=== PATIENT | female | born 1960 | race Caucasian/White ===

== ENCOUNTER 2019-07-30 11:28 | Outpatient (CLI) | payer BC, SELFPAY ==
--- NOTE | 2019-07-30 11:39 | XR_ITS ---
WS: [id number] CHEST 2 VIEWS HISTORY: COUGH COMPARISON: 06/20/2016 Lungs: Slight rounded opacification in the RIGHT lower lobe has been stable over multiple years. Thin linear areas of scarring in the mid and lower LEFT lung. Benign granuloma RIGHT lung base. No pneumo ananya. No pleural effusion or pneumothorax. Cardiac size: Normal. Mediastinum/Aorta: Normal mediastinum. Bones: Thoracic spondylosis. XR/XR chest 2V* [id number] IMPRESSION: No acute cardiopulmonary disease. Similar findings as compared to the prior prudence dy.
== END 2019-07-30 11:29 | disposition home or self-care (01) ==
LOC: RADWPI 11:34
PROVIDERS: Family Provider Family Medicine; PCP Family Medicine; Visit Provider Nurse Practitioner Family
DX: R05 Cough (principal)
CPT/HCPCS: 71046

== ENCOUNTER 2020-04-16 13:06 | Outpatient (CLI) | payer BC, SELFPAY ==
--- NOTE | 2020-04-16 13:14 | CT_ITS ---
WS: [id number] LDCT LUNG CANCER SCREENING HISTORY: NICOTINE DEPENDENCE TECHNIQUE: Axial imaging performed from the apices to 1 cm below the costophrenic angles. Coronal and sagittal reformats are submitted with axial MIP series. All CT scans at [facility] use at least one of these dose optimization techniques: automated exposure control; mA and/or kV adjustment per patient size (includes targeted exams where dose is matched to clinical indication); or iterativ e reconstruction. DLP: 51.81 mGy.cm DIvol: 1.58 mGy COMPARISON: 06/26/2016 Diagnostic quality: Satisfactory Lung Nodules: Subpleural 7 mm nodule in the posterior RIGHT upper lobe measures 7 mm, image 64 of ser ies 3. Subsegmental linear areas of scar RIGHT lower lobe and LEFT upper lobes. Lungs: Long-term stability of the neck soft tissue and calcified mass in the LEFT lower lobe may be o f vascular etiology. No increase in size over multiple prior studies. Subsegmental atelectasis at the lingula. Heart: Normal size heart. Moderate calcification in the [place] coronary arteries. Other findings: Calcified subcarinal and RIGHT hilar lymph nodes. Pulmonary artery is slightly enlarg ed. Large hiatal hernia. Increase in thoracic kyphosis. CT/CT lung screening [id number] IMPRESSION: LUNG-RADS: 3-Probably Benign FOLLOW UP: 6 Month LDCT Follow up subpleural 7 mm nodule in the posterior RIGHT upper lobe. OTHER FINDINGS (S MODIFIER): None.
== END 2020-04-16 13:07 | disposition home or self-care (01) ==
LOC: RAD 13:10
PROVIDERS: PCP Family Medicine; Visit Provider Family Medicine
DX: Z12.2 Encounter for screening for malignant neoplasm of respiratory organs (principal); F17.210 Nicotine dependence, cigarettes, uncomplicated
CPT/HCPCS: G0297

== ENCOUNTER 2020-06-07 13:04 | Outpatient (CLI) | payer BC, SELFPAY ==
--- NOTE | 2020-06-07 13:11 | MM_ITS ---
WS: [id number] BILATERAL SCREENING DIGITAL MAMMOGRAM WITH CAD HISTORY: SCREENING COMPARISON: 07/19/2017 and 07/03/2016 Bilateral CC and MLO views submitted. Computer aided detection analyzed. Breast composition: There are scattered areas of fibroglandular density. No suspicious masses, microc alcifications or architectural distortion. Benign calcifications in each breast. MM/[place] [id number] IMPRESSION: BI-RADS: 2-Benign FOLLOW UP: 1 Year Follow-up
== END 2020-06-07 13:05 | disposition home or self-care (01) ==
LOC: RADSHAW 13:07
PROVIDERS: PCP Family Medicine; Visit Provider Family Medicine
DX: Z12.31 Encounter for screening mammogram for malignant neoplasm of breast (principal)
CPT/HCPCS: 77067

== ENCOUNTER 2020-09-22 13:06 | Outpatient (CLI) | payer BC, SELFPAY ==
--- NOTE | 2020-09-22 13:20 | CT_ITS ---
WS: [id number] CT CHEST WITHOUT INTRAVENOUS CONTRAST HISTORY: PULMONARY NODULE, RIGHT UPPER LOBE TECHNIQUE: Contiguous 5 mm axial imaging performed on the thorax. Coronal and sagittal reformats are submitted. All CT scans at [facility] use at least one of these dose optimization techniq ues: automated exposure control; mA and/or kV adjustment per patient size (includes targeted exams wh ere dose is matched to clinical indication); or iterative reconstruction. CONTRAST: None DLP: 837.05 mGycm COMPARISON: 07/30/2019, 06/17/2019 and 06/26/2016 Lungs and central airway: Previously described nodule in the posterior RIGHT upper lobe has resolved in the interval. No suspicious masses. Linear scar near the lingula. Numerous calcifications with bro nchial thickening in the RIGHT lower lobe along the fissure is stable. Pleura: Normal. No pleural effusion. Heart and pericardium: Normal size heart with coronary artery calcifications. Mediastinum and clinton: Numerous small mediastinal and hilar lymph nodes. Vessels: Pulmonary artery size is equal to the aorta. Chest wall and lower neck: No soft tissue masses. Upper abdomen: Moderate size hiatal hernia similar to the prior study. Splenic granulomata. No adrena l mass. Osseous structures: Moderate thoracic spondylosis. CT/CT chest wo con [id number] IMPRESSION: 1. Interval resolution of a previously described subpleural nodule in the RIGH T upper lobe. 2. No acute adenopathy or pulmonary mass. 3. Moderate size hiatal hernia.
== END 2020-09-22 13:07 | disposition home or self-care (01) ==
LOC: RADWPI 13:09
PROVIDERS: PCP Family Medicine; Visit Provider Family Medicine
DX: R91.1 Solitary pulmonary nodule (principal); K44.9 Diaphragmatic hernia without obstruction or gangrene
CPT/HCPCS: 71250

== ENCOUNTER 2020-11-11 10:37 | Outpatient (CLI) | payer BC, SELFPAY ==
--- NOTE | 2020-11-11 10:52 | XR_ITS ---
WS: [id number] Left hip, 2 views, 11/11/2020 Clinical Data: L HIP JOINT PAIN/CHRONIC RHEUMATOID ARTHRITIS Comparison: Bilateral hips, 01/31/2016. Findings: No fractures or dislocations are seen. There is an acetabular spur with minimal narrowing of the join t space unchanged. The soft tissues are not remarkable. The adjacent pelvis is normal. The left SI joint and the pubic symphysis are not remarkable. XR/XR hip LT 2-3V wo/w pel* [id number] Impression: Minimal osteoarthritis of the left hip. Tonnis classification: grade 1: sclerosis of femoral head and acetabulum or sli ght joint space narrowing or slight lipping at joint margins
== END 2020-11-11 10:38 | disposition home or self-care (01) ==
PROVIDERS: PCP Family Medicine; Visit Provider Family Medicine
DX: M25.552 Pain in left hip (principal); M06.9 Rheumatoid arthritis, unspecified
CPT/HCPCS: 73502

== ENCOUNTER 2020-11-19 13:06 | Outpatient (CLI) | payer BC, SELFPAY ==
--- NOTE | 2020-11-19 13:14 | XR_ITS ---
WS: [id number] Bone mineral density performed on a [employer] IDXA, 11/19/2020 Clinical data: ASYMPTOMATIC MENOPAUSAL STATE, OSTEOPENIA, RHEUMATOID ARTHRI Comparison study: DEXA scan, 02/10/2016. Findings: The first 4 lumbar vertebral bodies demonstrated the bone mineral density of 1.145 g/sq cm for a timbo g adult T score of -0.5. Measurement of the left radius reveals a bone mineral density of 0.906 g/sq cm with a young adult T s core of 1.3. XR/XR DEXA axial skeleton* 11376 Impression: 1. Normal bone mineral density of the lumbar spine and left radius. 2. There is improvement in the bone mineral density of the lumbar spine compare d to the previous examination.
== END 2020-11-19 13:07 | disposition home or self-care (01) ==
PROVIDERS: PCP Family Medicine; Visit Provider Family Medicine
DX: M85.80 Other specified disorders of bone density and structure, unspecified site (principal); M06.9 Rheumatoid arthritis, unspecified; Z78.0 Asymptomatic menopausal state
CPT/HCPCS: 77080

== ENCOUNTER → 2020-12-14 13:24 | Outpatient (BNVA) | payer BC, SELFPAY | PROVIDERS: PCP Family Medicine; Visit Provider Internal Medicine | DX: M06.9 Rheumatoid arthritis, unspecified (principal); Z11.59 Encounter for screening for other viral diseases; Z11.1 Encounter for screening for respiratory tuberculosis; Z79.899 Other long term (current) drug therapy; F17.210 Nicotine dependence, cigarettes, uncomplicated | CPT/HCPCS: 99203; 99204 ==

== ENCOUNTER 2020-12-15 13:39 | Outpatient (CLI) | payer BC, SELFPAY ==
--- NOTE | 2020-12-15 13:43 | XR_ITS ---
WS: [id number] LEFT HAND: 2 VIEW(S) TECHNIQUE: PA and lateral. HISTORY: M06.9 - Rheumatoid arthritis, unspecified COMPARISON: 09/22/2015 No acute fracture or dislocation. Postsurgical changes involving the proximal first metacarpal. There is less bony hypertrophy and jennifer rio of the trapezium. No erosions at the metacarpal heads. Mild interphalangeal joint space narrowing . Mild shortening of the ulna. XR/XR hand LT 2V [id number] IMPRESSION: 1. Postsurgical debridement at the first CMC joint and removal of the trapeziu m. 2. No metacarpal head erosions or subluxations.
--- NOTE | 2020-12-15 13:43 | XR_ITS ---
WS: [id number] RIGHT HAND: 2 VIEW(S) TECHNIQUE: PA and lateral. HISTORY: M06.9 - Rheumatoid arthritis, unspecified COMPARISON: 08/28/2013 No acute fracture or dislocation. Severe osteoarthritic changes at the first CMC joint bony hypertrophy with joint space narrowing dayanna lar to the prior study. No erosions at the metacarpal heads. No subluxation or displacement. Mild gabriela rowing of the radial ulnar joint. XR/XR hand RT 2V 78085 IMPRESSION: 1. 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 2. No erosions or subluxation.
== END 2020-12-15 13:40 | disposition home or self-care (01) ==
PROVIDERS: PCP Family Medicine; Visit Provider Internal Medicine
DX: M06.9 Rheumatoid arthritis, unspecified (principal); Z11.59 Encounter for screening for other viral diseases; Z11.1 Encounter for screening for respiratory tuberculosis
CPT/HCPCS: 73120; 85651; 86140; 86431; 86480; 86704; 86803; 87340

== ENCOUNTER 2021-01-20 13:07 | Outpatient (CLI) | payer BC, SELFPAY ==
--- NOTE | 2021-01-20 13:10 | XR_ITS ---
WS: [id number] FOOT RIGHT TECHNIQUE: 2 views of the right foot CLINICAL INFORMATION: M25.50 - Pain in unspecified joint COMPARISON: None. FINDINGS: Soft tissue edema lower leg and hindfoot. Normal metatarsals. Hammertoe deformities. Normal TMT joint s. Plantar calcaneal spurring. No acute fractures. XR/XR foot RT 2V [id number] IMPRESSION: Mild degenerative arthritis in the midfoot with hammertoe deformities. No acute fractures.
--- NOTE | 2021-01-20 13:10 | XR_ITS ---
WS: [id number] FOOT LEFT TECHNIQUE: 2 views of the left foot CLINICAL INFORMATION: M25.50 - Pain in unspecified joint COMPARISON: None. FINDINGS: Soft tissue edema lower leg and hindfoot. Normal metatarsals. Degenerative arthritis tarsal bones and TMT joints. IP joint narrowing. Small erosions involving the third and fourth metatarsal heads. Plan tar calcaneal spurring. No acute fractures. XR/XR foot LT 2V [id number] IMPRESSION: 1. Mild degenerative arthritis of the tarsal bones and TMT joints. 2. No acute fractures. 3. Plantar calcaneal spurring.
== END 2021-01-20 13:08 | disposition home or self-care (01) ==
PROVIDERS: PCP Family Medicine; Visit Provider Internal Medicine
DX: M25.50 Pain in unspecified joint (principal)
CPT/HCPCS: 73620

== ENCOUNTER 2021-05-02 13:05 | Outpatient (CLI) | payer BC, SELFPAY ==
[2021-05-02 13:28] LABS: Basophils # 0.1 10^3/uL (0.0-0.1); Basophils % 0.5 %; Eosinophils # 0.4 10^3/uL (0.0-0.8); Eosinophils % 4.4 %; Hematocrit 40.7 % (37.0-47.0); Hemoglobin 13.3 g/dL (11.5-15.3); Lymphocytes # 3.5 10^3/uL (0.8-4.8); Lymphocytes % 38.3 %; Mean Corpuscular HGB Conc 32.7 g/dL (30.0-36.0); Mean Corpuscular Hemoglobin 32.2 pg (28.0-34.0); Mean Corpuscular Volume 98.5 fl (81-99); Monocytes # 0.8 10^3/uL (0.2-0.9); Monocytes % 8.1 %; Neutrophils # 4.47 10^3/uL (1.8-7.7); Neutrophils % 48.5 %; Nucleated Red Blood Cells % 0 %; Platelet Count 389 10^3/cmm (130-400); Red Blood Count 4.13 10^6/uL (4.1-5.3); Red Cell Distribution Width 13.4 % (12.1-15.1); White Blood Count 9.2 10^3/uL (4.0-10.0)
[2021-05-02 13:50] LABS: Erythrocyte Sedimentation Rate 8 mm/hr (0-15)
[2021-05-02 13:58] LABS: Alanine Aminotransferase 13 U/L (0-33); Albumin Level 4.1 g/dL (3.5-5.2); Alkaline Phosphatase 71 IU/L (35-105); Aspartate Amino Transferase 14 U/L (0-32); Blood Urea Nitrogen 14 mg/dL (8-23); Calcium 8.7 mg/dL (8.5-10.5); Carbon Dioxide 24 mmol/L (22-29); Chloride 104 mmol/L (98-107); Globulin 3.2 g/dL (1.3-4.6); Glomerular Filtration Rate 85.1 mL/min (90-130); Glucose 94 mg/dL (65-115); Osmolality Calculated 292 mOsm/kg (285-295); Sodium 141 mmol/L (136-145); Total Bilirubin 0.2 mg/dL (0.15-1.2); Total Protein 7.3 g/dL (6.6-8.7)
[2021-05-02 14:02] LABS: Anion Gap 16.5 (5-19); Potassium 3.5 mmol/L (3.5-5.1)
== END 2021-05-02 13:06 | disposition home or self-care (01) ==
LOC: LAB 13:09
PROVIDERS: PCP Family Medicine; Visit Provider Internal Medicine
DX: M06.9 Rheumatoid arthritis, unspecified (principal); Z79.899 Other long term (current) drug therapy
CPT/HCPCS: 36415; 80053; 85025; 85651; 86140

== ENCOUNTER 2021-06-06 15:34 | Outpatient (CLI) | payer OTHER, SELFPAY ==
--- NOTE | 2021-06-06 15:50 | XR_ITS ---
WS: [id number] XR lumbar spine 2-3V* [id number] REASON FOR EXAM: M06.9 - Rheumatoid arthritis, unspecified FINDINGS: Rotatory scoliosis of the lumbar spine convex left. No significant compression deformity or focal vertebral body abnormality. Severe narrowing of the intervertebral disc spaces at L4-L5 and L5-S1 with endplate sclerosis and ost eophytosis. Degenerative gas in the disc spaces. 3 mm of anterolateral listhesis of L5 on S1. Degenerative facet joint changes at L5-S1. XR/XR lumbar spine 2-3V* [id number] IMPRESSION: Degenerative spondylosis as above.
== END 2021-06-06 15:35 | disposition home or self-care (01) ==
PROVIDERS: PCP Family Medicine; Visit Provider Internal Medicine
DX: M06.9 Rheumatoid arthritis, unspecified (principal)
CPT/HCPCS: 72100

== ENCOUNTER 2021-08-03 13:25 | Outpatient (CLI) | payer OTHER, SELFPAY ==
--- NOTE | 2021-08-03 13:32 | XR_ITS ---
WS: [id number] Exam: XR lumbar spine min 4V [id number] Date/Time of Exam: 08/03/2021 1:33 PM Reason For Exam: LOW BACK PAIN No acute fracture or dislocation. Degenerative vacuum disks noted at L4-5 and L5-S1. Levoscoliosis of the lower lumbar spine. Marked facet arthropathy at L4-5 and L5-S1. Partial sacralization of L5. XR/XR lumbar spine min 4V [id number] IMPRESSION: 1. No acute fracture or malalignment. 2. Advanced degenerative changes at the L4-5 and L5-S1 disc levels with disc de generation and facet arthropathy. 3. Levoscoliosis of the lower lumbar spine. Partial sacralization of L5.
[2021-08-03 14:35] LABS: Basophils % 0.5 %; Eosinophils # 0.5 10^3/uL (0.0-0.8); Eosinophils % 6.2 %; Hematocrit 41.1 % (37.0-47.0); Hemoglobin 13.4 g/dL (11.5-15.3); Lymphocytes # 3.2 10^3/uL (0.8-4.8); Lymphocytes % 36.9 %; Mean Corpuscular HGB Conc 32.6 g/dL (30.0-36.0); Mean Corpuscular Hemoglobin 32.5 pg (28.0-34.0); Mean Corpuscular Volume 99.8 fl (81-99); Mean Platelet Volume 10.2 fL (7.4-10.4); Monocytes # 0.7 10^3/uL (0.2-0.9); Monocytes % 7.8 %; Neutrophils # 4.22 10^3/uL (1.8-7.7); Neutrophils % 48.4 %; Nucleated Red Blood Cells % 0 %; Platelet Count 358 10^3/cmm (130-400); Red Blood Count 4.12 10^6/uL (4.1-5.3); Red Cell Distribution Width 13.9 % (12.1-15.1); White Blood Count 8.7 10^3/uL (4.0-10.0)
[2021-08-03 14:58] LABS: Erythrocyte Sedimentation Rate 22 mm/hr (0-15)
[2021-08-03 16:17] LABS: Alanine Aminotransferase 13 U/L (0-33); Albumin Level 4.3 g/dL (3.5-5.2); Alkaline Phosphatase 72 IU/L (35-105); Anion Gap 13.5 (5-19); Aspartate Amino Transferase 14 U/L (0-32); Blood Urea Nitrogen 12 mg/dL (8-23); C Reactive Protein 5.7 mg/L (0.0-4.9); Calcium 9.9 mg/dL (8.5-10.5); Carbon Dioxide 25 mmol/L (22-29); Chloride 103 mmol/L (98-107); Globulin 3.2 g/dL (1.3-4.6); Glomerular Filtration Rate 101.6 mL/min (90-130); Glucose 77 mg/dL (65-115); Osmolality Calculated 285 mOsm/kg (285-295); Potassium 3.5 mmol/L (3.5-5.1); Sodium 138 mmol/L (136-145); Total Bilirubin 0.2 mg/dL (0.15-1.2); Total Protein 7.5 g/dL (6.6-8.7)
== END 2021-08-03 13:26 | disposition home or self-care (01) ==
LOC: RAD 13:28
PROVIDERS: Internal Medicine; PCP Family Medicine; Visit Provider Nurse Practitioner Family
DX: M54.50 Low back pain, unspecified (principal); M06.9 Rheumatoid arthritis, unspecified; Z79.899 Other long term (current) drug therapy; M41.86 Other forms of scoliosis, lumbar region
CPT/HCPCS: 72110; 80053; 85025; 85651; 86140

== ENCOUNTER 2021-08-17 13:58 | Outpatient (CLI) | payer OTHER, SELFPAY ==
--- NOTE | 2021-08-17 14:07 | MM_ITS ---
WS: [id number] Bilateral screening 3D tomosynthesis digital mammogram, 08/17/2021 Clinical Data: SCREENING Comparison: 06/07/2020, 07/19/2017, 07/03/2016, 03/23/2015, 03/03/2014, 06/05/2011, 02/11/2009, 10/04/2006. Findings: The breast parenchymal pattern shows fibroglandular tissue No spiculated masses or clustered calcific ations are seen. There are no secondary signs of carcinoma. MM/[place] [id number] Impression: 1. Negative bilateral mammogram unchanged. 2. Recommend annual screening mammograms. BIRADS: 1-Negative FOLLOW UP: 1 Year Follow-up The CAD bingo checker was used.
== END 2021-08-17 13:59 | disposition home or self-care (01) ==
LOC: RADSHAW 14:00
PROVIDERS: PCP Family Medicine; Visit Provider Family Medicine
DX: Z12.31 Encounter for screening mammogram for malignant neoplasm of breast (principal)
CPT/HCPCS: 77063; 77067

== ENCOUNTER 2021-09-06 06:00 | Outpatient (RCR) | payer OTHER, SELFPAY | END 2021-10-04 23:59 | disposition home or self-care (01) | LOC: SPT 06:00 | PROVIDERS: PCP Family Medicine; Referring Provider Anesthesiology Pain Medicine; Visit Provider Anesthesiology Pain Medicine | DX: M51.37 Other intervertebral disc degeneration, lumbosacral region (principal); M54.50 Low back pain, unspecified | CPT/HCPCS: 97110; 97161 ==

== ENCOUNTER → 2021-10-18 13:12 | Outpatient (BNVA) | payer OTHER, SELFPAY | PROVIDERS: PCP Family Medicine; Visit Provider Physician Assistant | DX: M54.12 Radiculopathy, cervical region (principal) | CPT/HCPCS: 72050 ==

== ENCOUNTER 2021-10-24 06:00 | Outpatient (RCR) | payer OTHER, SELFPAY | END 2021-11-03 23:59 | disposition home or self-care (01) | LOC: SPT 06:00 | PROVIDERS: Absent Provider Physician Assistant; Family Provider Physician Assistant; PCP Family Medicine; Referring Provider Physician Assistant; Visit Provider Physician Assistant | DX: M54.2 Cervicalgia (principal) | CPT/HCPCS: 97161 ==

== ENCOUNTER 2021-10-25 12:47 | Outpatient (CLI) | payer OTHER, SELFPAY ==
--- NOTE | 2021-10-25 13:00 | MR_ITS ---
WS: [id number] MRI CERVICAL SPINE NONCONTRAST HISTORY: M54.12 - Radiculopathy, cervical region COMPARISON: 03/22/2016 Technique: Multiplanar, multisequence noncontrast imaging of the cervical spine. Prior anterior cervical fusion from C4 through C7. Mild anterior wedging of C3, C4 and C5. Reversal o f normal cervical lordosis and straightening. Most significant reversal at C3-4. No fracture or marro w edema. Signal within the cord is normal. Craniocervical junction, C1 and C2 relationship, odontoid process and soft tissues are normal. C2-C3: Central disc protrusion and facet arthritis. No stenosis. C3-C4: Marked disc bulging and mild vertebral body osteophytosis extending into the foramina. Central disc protrusion effaces the CSF and causes contact and displacement of the cervical cord. Moderate c entral and bilateral foraminal stenosis. Slightly greater stenosis on the RIGHT. Mild facet arthritis . C4-C5: Diffuse osteophytic ridging and disc bulging. Mild RIGHT and moderate LEFT foraminal stenosis and mild central stenosis. C5-C6: Diffuse disc bulging with central disc protrusion. Disc osteophyte complexes centrally. Mild f acet arthritis. Mild central and bilateral foraminal stenosis. C6-C7: Small LEFT paracentral osteophyte or disc. No contact on the ventral thecal sac. Mild foramina l stenosis. C7-T1: Mild osteophytic ridging. No stenosis. Paraspinal soft tissue are normal. MR/MR cervical spin wo con* [id number] IMPRESSION: 1. Since the prior examination patient is status post anterior cervical fusion from C4 to C7. 2. Chronic anterior wedging of C3 and C4. 3. Reversal of the normal cervical lordosis centered at C3-4. 4. Moderate central and bilateral foraminal stenosis at C3-4 due to disc and o steophyte disease. There is significant disc osteophyte contact on the ventral cervical cord with posterior displacement. 5. Moderate LEFT foraminal stenosis at C4-5 with mild RIGHT and mild central s tenosis due to disc and osteophyte disease. 6. Mild central and bilateral foraminal stenosis at C5-6.
--- NOTE | 2021-10-25 13:45 | MR_ITS ---
WS: [id number] MRI LUMBAR SPINE NONCONTRAST HISTORY: M48.062 - Spinal stenosis, lumbar region with neurogenic claudication. Bilateral hip and leg pain. COMPARISON: None available. TECHNIQUE: Sagittal and axial multisequence imaging is submitted. Increase in the lumbar lordosis. L5 anterolisthesis by 3 mm. S1 is lumbarized. Severe, progressive disc space narrowing and desiccation throughout the lumbar spine and most signifi cant at L3-4, L4-5 and L5-S1. Mild reactive marrow edema noted at the thoracolumbar junction and also in the lower lumbar spine. No acute fracture. Conus terminates normally at L1. T11-12: Increase in size of the central disc protrusion contacting the ventral thoracic cord with mil d displacement. Mild narrowing of foramina at T11-12. L1-L2: Mild facet joint arthritis. No significant stenosis. L2-L3: Diffuse annular disc bulging with a central moderate disc protrusion and osteophytosis. Mild l igamentum flavum hypertrophy and facet arthritis. Moderate central, bilateral subarticular recess and foraminal stenosis. There is disc contacting most significantly the RIGHT L3 nerve root. L3-L4: Diffuse asymmetric disc bulging with osteophytic ridging, facet and ligamentum flavum hypertro phy. Central disc protrusion extending into the lateral recesses. Mild central, bilateral lateral rec ess and foraminal stenosis. There is mild disc encroachment into the subarticular recesses with mild contact on the traversing L4 nerve roots. L4-L5: Diffuse marked annular disc bulge with a central disc protrusion and osteophytosis. Mild ligam entum flavum disease and facet arthritis. Moderate central stenosis with disc encroachment into the l ateral recesses, RIGHT greater than LEFT. Severe RIGHT and mild LEFT foraminal stenosis. L5-S1: Diffuse osteophytic ridging. Diffuse annular disc bulging with a central disc protrusion. Liga mentum flavum and facet arthritis. Moderate to severe bilateral foraminal stenosis and mild central s tenosis. Mild encroachment into the subarticular recesses. RIGHT adnexal cyst 2.8 cm. MR/MR lumbar spine wo con* [id number] IMPRESSION: 1. Multilevel advanced degenerative spondylitic changes throughout the lumbar spine with progression since 2016. 2. Severe degenerative disc disease at L4-5 with reactive marrow edema in the vertebral bodies. 3. Severe RIGHT and mild LEFT foraminal stenosis at L4-5 with moderate central and bilateral subarticular recess stenosis. Disc contacts the RIGHT L4 and L5 nerve roots most significantly. 4. Moderate to severe bilateral foraminal stenosis with mild central and subar ticular recess stenosis at L5-S1. 5. Moderate central disc protrusion at L2-3 with vertebral body osteophytosis. Moderate central, bilateral subarticular and foraminal stenosis at L2-3. Disc contacts the RIGHT L3 nerve root most significantly. 6. Mild central, bilateral lateral recess and foraminal stenosis at L3-4. Cent ral disc protrusion contacts the traversing L4 nerve roots. 7. Increase in size of the central disc protrusion at T11-12 contacting the ve ntral thoracic cord.
== END 2021-10-25 12:48 | disposition home or self-care (01) ==
PROVIDERS: Family Provider Physician Assistant; PCP Family Medicine; Visit Provider Anesthesiology Pain Medicine
DX: M48.062 Spinal stenosis, lumbar region with neurogenic claudication (principal); M51.26 Other intervertebral disc displacement, lumbar region
CPT/HCPCS: 72141; 72148

== ENCOUNTER → 2021-11-15 13:04 | Day surgery (SDC) | payer OTHER, SELFPAY | PROVIDERS: PCP Family Medicine; Visit Provider Orthopaedic Surgery | DX: M79.671 Pain in right foot (principal) | CPT/HCPCS: 80048; 85025; 93005 ==

== ENCOUNTER 2021-11-15 14:29 | Outpatient (CLI) | payer OTHER, SELFPAY ==
--- NOTE | 2021-11-15 | XR_ITS ---
WS: [id number] Left foot, 3 views, 11/15/2021 Clinical Data: PAIN Comparison: Left foot, 01/20/2021. Findings: No fractures or dislocations are seen. There is minimal deformity of the heads of the left third and fourth metatarsals.. The joint spaces and soft tissues are normal. There is a plantar spur. XR/XR foot LT min 3V* [id number] Impression: Minimal deformity of the heads of the left third and fourth metatarsals.
--- NOTE | 2021-11-15 | XR_ITS ---
WS: [id number] Right foot, 3 views, 11/15/2021 Clinical Data: PAIN Comparison: Right foot, 01/20/2021. Findings: No fractures or dislocations are seen. No bone destruction or erosion is noted. The joint spaces and soft tissues are normal. There is a small plantar spur. XR/XR foot RT min 3V* [id number] Impression: Negative right foot.
--- NOTE | 2021-11-15 | XR_ITS ---
WS: [id number] Left hip, AP and frog-leg views, 11/15/2021 Clinical Data: PAIN Comparison: Left hip, 11/11/2020. Findings: No fractures or dislocations are seen. There is spurring of the left acetabulum unchanged. The soft t issues are not remarkable. The adjacent pelvis is normal. The SI joints and pubic symphysis are not remarkable. XR/XR hip LT 2-3V wo/w pel* [id number] Impression: Minimal osteoarthritis of the left hip. Tonnis classification: grade 1: sclerosis of femoral head and acetabulum or sli ght joint space narrowing or slight lipping at joint margins
== END 2021-11-15 14:30 | disposition home or self-care (01) ==
LOC: RAD 14:34
PROVIDERS: PCP Family Medicine; Visit Provider Family Medicine
DX: M16.12 Unilateral primary osteoarthritis, left hip (principal); M79.671 Pain in right foot; M25.552 Pain in left hip
CPT/HCPCS: 73502; 73630

== ENCOUNTER 2021-11-23 07:08 | Day surgery (SDC) | payer OTHER, SELFPAY ==
[2021-11-15 12:58] VITALS: BMI 34.9
--- NOTE | 2021-11-15 13:04 | ECG_ITS ---
[facility] Test Date: 2021-11-15 Pat Name: Leora Davila Department: Room: Gender: Female Manager [employer] Services: : 1960 Requested By: Abraham Myers Order Number: [id number] Raheem MD: Ishan Caceres M.D. Measurements Intervals [place] Rate: 72 P: 269 SD: 106 QRS: 19 QRSD: 101 T: 26 QT: 384 QTc: 421 Interpretive Statements JUNCTIONAL RHYTHM POSSIBLE ANTERIOR MYOCARDIAL INFARCTION , OF INDETERMINATE AGE [30 ms Q WAVE IN V3/V4, OR R < 0.2 mV IN V4] No previous ECG available for comparison Electronically Signed On 11-15-2021 17:33:24 CDT by Ishan Caceres M.D. [id number]
[2021-11-15 13:42] LABS: Basophils % 0.3 %; Eosinophils # 0.3 10^3/uL (0.0-0.8); Eosinophils % 4.3 %; Hematocrit 41.3 % (37.0-47.0); Hemoglobin 13.9 g/dL (11.5-15.3); Lymphocytes # 2.7 10^3/uL (0.8-4.8); Lymphocytes % 35.4 %; Mean Corpuscular HGB Conc 33.7 g/dL (30.0-36.0); Mean Corpuscular Hemoglobin 32.1 pg (28.0-34.0); Mean Corpuscular Volume 95.4 fl (81-99); Mean Platelet Volume 9.8 fL (7.4-10.4); Monocytes # 0.6 10^3/uL (0.2-0.9); Neutrophils # 3.95 10^3/uL (1.8-7.7); Neutrophils % 51.6 %; Nucleated Red Blood Cells % 0 %; Platelet Count 397 10^3/cmm (130-400); Red Blood Count 4.33 10^6/uL (4.1-5.3); Red Cell Distribution Width 13.4 % (12.1-15.1); White Blood Count 7.7 10^3/uL (4.0-10.0)
[2021-11-15 13:59] LABS: Anion Gap 15.7 (5-19); Blood Urea Nitrogen 12 mg/dL (8-23); Calcium 9.2 mg/dL (8.5-10.5); Carbon Dioxide 23 mmol/L (22-29); Chloride 103 mmol/L (98-107); Glomerular Filtration Rate 125.4 mL/min (90-130); Glucose 84 mg/dL (65-115); Osmolality Calculated 285 mOsm/kg (285-295); Potassium 3.7 mmol/L (3.5-5.1); Sodium 138 mmol/L (136-145)
--- NOTE | 2021-11-15 14:47 | P.ANESASSM_ITS ---
Pre-Anesthetic Assessment Height/Weight: Height 1.57 m Weight 86.636 kg Preop Diagnosis: Cervical Spondylosis with Radiculopathy, S/P Cervical Fusion Operation Date: 11/23/21 12:10 Proposed Procedures p hardware removal of the cervical spine with an ACDF at C3-4 16511,33633,38603,91434,62449,09115,88508,M47.812,Z98.1(Not Applicable) - Rodrigo Pfeiffer DO Familial anesthetic complications: none Was Beta He taken within 24 hours: N/A Was Clonidine taken within 24 hours: N/A Social Tobacco and No alcohol Exam alert, oriented x 3 and regular rate & rhythm Airway Submandibular: within normal limits Cervical ROM: Other (some limitation) Mallampati: Class II Dentition: chipped Pulmonary Chronic Obstructive Pulmonary Disease CV/HEM Hypertension Musc/skel Lower Back Pain, Osteoarthritis/DJD and Rheumatoid Arthritis Neuropsych Neuropathy Anesthetic Plan ASA status: 3 Anesthesia: General Other: Discussed a.line and transfusion which was OK with patient Medications/Allergies Home Medications Medication Instructions Recorded Confirmed Last Taken Type albuterol sulfate 90 mcg/actuation 1 inh INHALATION QID PRN 12/14/20 11/15/21 Un known History aerosol inhaler amlodipine 10 mg tablet 10 mg PO DAILY 12/14/20 11/15/21 Unknown History fluoxetine 40 mg capsule 40 mg PO DAILY 12/14/20 11/15/21 Unknown History hydrochlorothiazide 25 mg tablet 25 mg PO DAILY 12/14/20 11/15/21 Unknown History ibuprofen 200 mg capsule 200 mg PO Q6H PRN 12/14/20 11/15/21 11/11/21 History montelukast 10 mg tablet 10 mg PO BEDTIME 12/14/20 11/15/21 Unknown History CURAMIN 08/29/21 10/27/21 Unknown History hydroxychloroquine 200 mg tablet 200 mg PO BID #60 tab 10/13/21 11/15/21 Unknown Rx acetaminophen 500 mg tablet 1,000 mg PO QID PRN 11/15/21 11/15/21 Unknown History Allergies Allergy/AdvReac Type Severity Reaction Status Date / Time No Known Allergies Allergy Verified 10/27/21 14:29 [facility] Anesthesia Social History Smoking and tobacco status: current every day smoker cigarettes Packs smoked per day: 1 Alcohol intake: current Alcohol intake frequency: few times a week Alcohol type: wine History of recent travel: No Data Anesthesia : 11/15/21 13:30 11/15/21 13:30 Short CBC 11/15/21 Range/Units 13:30 WBC 7.7 (4.0-10.0) 10^3/uL Hgb 13.9 (11.5-15.3) g/dL Hct 41.3 (37.0-47.0) % MCV 95.4 (81-99) fl Plt Count 397 (130-400) 10^3/cmm Neut % (Auto) 51.6 % Neut # (Auto) 3.95 (1.8-7.7) 10^3/uL BMP 11/15/21 13:30 Sodium 138 Potassium 3.7 Chloride 103 Carbon Dioxide 23 BUN 12 Creatinine 0.5 Glucose 84 Calcium 9.2 Cardiac Studies: No Data to Display
[2021-11-23] VITALS (10 sets, daily range): BP systolic 106–130; BP diastolic 68–92; PULSE 62–74; RESP 15–18; TEMP 36.3–36.7; O2SAT 90–98
--- NOTE | 2021-11-23 | SCC_ITS ---
Procedure done: 1. Anterior diskectomy C3/4 2. Insertion of cage C3/4 3. Anterior fusion C3/4 4. Use of allograft 36.4 seconds of fluoroscopic guidance, for a cumulative dose of 2.73 mGy, was provided to Dr. Pfeiffer by the radiology department. C-arm images of the cervical spine were saved for the patient's permanent record. [facility]
--- NOTE | 2021-11-23 | XR_ITS ---
WS: [id number] XR cervical spine 3V* [id number] REASON FOR EXAM: acdf c3-4 FINDINGS: Previous anterior plate and screw fixation C4-C7 with interbody fusion devices at C4-C5 C5-C6 and C6- C7. New anterior oblique screw placements C3 and C4 with interbody fusion device at C3-C4. Surgical appliances are in proper position and alignment. XR/XR cervical spine 3V* [id number] IMPRESSION: Anterior screw fixation and interbody fusion device C3-C4 without abnormality.
[2021-11-23] MEDS: sodium chloride 0.9% 1,000 ML 30 ML IV (07:45)
--- NOTE | 2021-11-23 07:45 | P.ANESUD_ITS ---
Pre-Anesthetic Update Pre-Anesthetic Assessment: Date of Surgery/Procedure: 11/23/21 Preop Manda gnosis: Cervical Spondylosis with Radiculopathy, S/P Cervical Fusion Proposed Procedure: Operation Date: 11/23/21 08:50 Proposed Procedures p hardware removal of the cervical spine with an ACDF at C3-4 80846,34510,44566,56302,60822,21865,33020,M47.812,Z98.1(Not Applicable) - Rodrigo Pfeiffer, DO s Anterior Cervical Discectomy & Fusion(Not Applicable) - Rodrigo Pfeiffer, DO Any changes to Pre-Anesthetic Assessment?: No Last Intake: Intake Last Liquid Date 11/22/21 Last Liquid Time 20:00 Last Solid Date 11/22/21 Last Solid Time 20:00 Vitals: Temperature 98.0 F 11/23/21 07:15 Temperature Source Temporal Artery S can 11/23/21 07:15 Pulse Rate 74 11/23/21 07:15 Respiratory Rate 18 11/23/21 07:15 Blood Pressure 129/84 11/23/21 07:15 Blood Pressure Jessica n 99 11/23/21 07:15 Pulse Oximetry 98 11/23/21 07:15 Oxygen Delivery Me thod 11/23/21 07:22 Exam: Pre-Anes Outpt Exam: alert, oriented x 3, clear to auscultation bilaterally and regular rate & rhythm Cardiac Studies: No Data to Display
--- NOTE | 2021-11-23 08:35 | W.PM.OPSUD ---
Surgery/Procedure H&P Update DATE OF PROCEDURE: November 23, 2021 DATE H&P PERFORMED: 10/27/21 H&P UPDATE INFORMATION: I have reviewed H&P completed within last 30 days, I have examined patient prior to procedure and No changes to prior documentation PREOP DIAGNOSIS: Cervical Spondylosis with Radiculopathy, S/P Cervical Fusion PLANNED PROCEDURE: Operation Date: 11/23/21 08:50 Proposed Procedures p hardware removal of the cervical spine with an ACDF at C3-4 09753,50718,66677,25672,12415,58470,38488,M47.812,Z98.1(Not Applicable) - DO bridget Limon Anterior Cervical Discectomy & Fusion(Not Applicable) - Rodrigo Pfeiffer DO
[2021-11-23] MEDS: ceFAZolin 2,000 MG in sodium chloride 0.9% (plus) 50 ML 100 MG IV (09:07)
[2021-11-23] MEDS: vancomycin 1,000 MG SDV 1000 MG XX (10:10)
--- NOTE | 2021-11-23 11:18 | P.OP_ITS ---
Operative Report Date of procedure: November 23, 2021 Pre-op diagnosis: Preop Diagnosis Cervical Spondylosis with Radiculopathy, S/P Cervical Fusion Post-op diagnosis: same Procedure done: 1. Anterior diskectomy C3/4 2. Insertion of cage C3/4 3. Anterior fusion C3/4 4. Use of allograft Surgeon: Rodrigo Pfeiffer Conveyor Belt Operator: Wander Fritz Conveyor Belt Operator: The director surgical, Wander Fritz, PAC was needed for his expertise under the microscope. He was important and necessary throughout the procedure to complete in a safe and timely manner. He assisted with patient positioning prepping and draping tissue retraction suctioning of the operative field protection of the dural sac and tissue closure Estimated blood loss (mL): 20 Procedure: 1. Anterior diskectomy C3/4 2. Insertion of cage C3/4 3. Anterior fusion C3/4 4. Use of allograft The patient was taken to the operating room, where he underwent general endotracheal anesthesia without complications. He was then positioned supine on the operating table, and all areas of impingement were well padded. The arms were carefully padded and tucked at his sides. A roll was placed between the shoulder blades.. An x-ray was done to determine the appropriate level for the skin incision. The entire neck was then sterilely prepped and draped in the usual fashion. Neuromonitoring was attached prior to prepping. A transverse skin incision was made and carried down to the platysma muscle. T his was then split in line with its fibers. Blunt dissection was carried down medial to the carotid sheath and lateral to the trachea and esophagus until the anterior cervical spine was visualized. The superior part of the previous plate was identified therefore a new location was that we were at the C3-4 displaced. The longus colli muscles were then elevated bilaterally with the electrocautery unit. Self-retaining retractors were placed deep to the longus colli muscle. Attention was brought to the C3-4 level that was confirmed on x-ray. A caspar pin was placed into the C 3 vertebrae and the C 4 vertebrae and the hole through the plate. The disk space was then distracted. The microscope was then brought in. A radical anterior discectomies were performed at C 3 4. This included complete removal of the anterior annulus, nucleus, and posterior annulus. The posterior longitudinal ligament was removed as were the posterior osteophytes. Foraminotomies were then accomplished bilaterally. This was done using a high speed drew, kerrison rongeurs and curretes Once all of this was accomplished, the curved currette was used to check for any residual compression. The central canal was wide open as were the foramen. A high-speed bur was used to remove the cartilaginous endplates above and below the interspace. Bleeding cancellous bone was exposed. The disc space were measured and appropriate size cage were placed sterilely onto the field. Allograft graft was packed into the cages. The stand-alone cage was then placed and there was good juxtaposition against the bleeding decorticated surfaces and good distraction of each interspace. The [place] pins were removed. Bone wax was used to prevent any bleeding from occurring at the pin sites. Screw was then placed through the cage into the C4 vertebrae. And then another screw was placed up into the C3 vertebrae through the cage. Locking the cage into place. Following a final copious irrigation, there was good hemostasis and no dural leaks. The carotid pulse was strong. The wounds were then closed in layers using 2-0 Vicryl suture for the platysma muscle, 2-0 Vicryl suture for the subcutaneous tissue, and 4-0 monocryl suture in a subcuticular skin closure. Glue was placed followed by application of a sterile dressing. The drain was hooked to bulb suction. A soft collar was applied. The patient was then carefully returned to the supine position on his hospital bed where he was reversed and extubated and taken to the recovery room having tolerated the procedure well.
--- NOTE | 2021-11-23 12:56 | ANE.PACU2 ---
Inpatient post-anesthesia follow up: Airway intact: Yes Vital signs: Temperature 97.4 F Pulse Rate 62 Respiratory Rate 18 Blood Pressure 130/81 Pulse Oximetry 92 Oxygen Delivery Me thod Room Air Oxygen Flow Rate 2 Fraction of Inspir ed Oxygen Hydration adequate: Yes Nausea and vomiting: No Pain level: 1 Mental status: Baseline
--- NOTE | 2021-11-24 08:54 | PC.SOCIAL ---
[facility] left voicemail to clarify d/c medications; called and spoke with Chaparro who will have nursing call to clarify d/c orders.
== END 2021-11-23 12:36 | disposition home or self-care (01) ==
PROVIDERS: Anesthesiology; PCP Family Medicine; Visit Provider Orthopaedic Surgery
PROC: (CPT 20930; principal; 2021-11-23 08:40)
PROC: 0RB30ZZ Excision of Cervical Vertebral Disc, Open Approach (ICD-10-PCS; CPT 22551; 2021-11-23 08:40)
DX: M47.12 Other spondylosis with myelopathy, cervical region (principal); J44.9 Chronic obstructive pulmonary disease, unspecified; I10 Essential (primary) hypertension; M06.9 Rheumatoid arthritis, unspecified; F17.210 Nicotine dependence, cigarettes, uncomplicated
CPT/HCPCS: 20930; 22551; 22845; 22853; 36415; 51702; 72040; 76000; C1713; C9359; J0330; J1100; J1170; J1200; J2405; J2704; J2710; J3010; J3370; J3490; J7030

== ENCOUNTER → 2021-12-08 10:27 | Outpatient (BNVA) | payer OTHER, MEDICAID, SELFPAY | PROVIDERS: PCP Family Medicine; Visit Provider Physician Assistant | DX: Z98.1 Arthrodesis status (principal) | CPT/HCPCS: 72040 ==

== ENCOUNTER 2022-01-10 13:29 | Outpatient (CLI) | payer MEDICAID, SELFPAY ==
--- NOTE | 2022-01-10 14:00 | CT_ITS ---
WS: [id number] CT CERVICAL SPINE HISTORY: C-spine pain TECHNIQUE: Contiguous 2.5 mm axial imaging performed through the entire cervical spine. Sagittal and coronal reformats also performed. [facility] CT [facility] use at least one of these dose o ptimization techniques: automated exposure control; mA and/or kV adjustment per patient size (include s targeted exams where dose is matched to clinical indication); or iterative reconstruction. DLP: 428.97 mGy.cm COMPARISON: 06/25/2017 Prior anterior cervical fusion from C4 through C7. Interbody spacers at C4-5, C5-6 and C6-7 with at l east partial bony fusion. New anterior cervical fusion hardware at C3-4 with interbody spacer. Very m ild anterior wedging of the C3 vertebral body is similar to prior examinations. C2-C3: Small central disc protrusion. No stenosis. C3-C4: Mild osteophytic ridging. Mild central and bilateral foraminal stenosis. C4-C5: Posterior osteophytic ridging encroaches upon the ventral thecal sac. Mild central and bilater al foraminal stenosis. C5-C6: Mild osteophytic ridging encroaching upon the ventral thecal sac. Mild central stenosis with m oderate bilateral foraminal stenosis. C6-C7: Osteophytic ridging with mild bilateral foraminal stenosis and facet arthritis. C7-T1: No stenosis. Lung apices are clear. CT/CT cervical spin wo con* [id number] IMPRESSION: 1. Remote anterior cervical fusion hardware with interbody spacers from C4 to C7 intact. 2. New anterior cervical fusion with interbody spacer at C3-4. Appears appropr iately positioned. 3. Multilevel facet joint arthritis with central and foraminal narrowing as de scribed above. Most significant foraminal narrowing is at C5-6. 4. Remote anterior wedging of C3 is stable.
== END 2022-01-10 13:30 | disposition home or self-care (01) ==
LOC: RAD 13:30
PROVIDERS: PCP Family Medicine; Visit Provider Physician Assistant
DX: M54.12 Radiculopathy, cervical region (principal); Z98.1 Arthrodesis status; M47.812 Spondylosis without myelopathy or radiculopathy, cervical region
CPT/HCPCS: 72125

== ENCOUNTER → 2022-01-12 08:38 | Outpatient (BNVA) | payer MEDICAID, SELFPAY | PROVIDERS: PCP Family Medicine; Visit Provider Physician Assistant | DX: Z98.1 Arthrodesis status (principal) | CPT/HCPCS: 72040; 99024 ==

== ENCOUNTER → 2022-01-19 14:44 | Outpatient (BNVA) | payer BC, MEDICAID, SELFPAY | PROVIDERS: PCP Family Medicine; Visit Provider Internal Medicine | DX: M06.9 Rheumatoid arthritis, unspecified (principal); M51.37 Other intervertebral disc degeneration, lumbosacral region | CPT/HCPCS: 99213 ==

== ENCOUNTER → 2022-02-03 07:55 | Outpatient (BNVA) | payer BC, MEDICAID, SELFPAY | PROVIDERS: PCP Family Medicine; Visit Provider Orthopaedic Surgery | DX: M16.12 Unilateral primary osteoarthritis, left hip (principal) | CPT/HCPCS: 99213; 99214 ==

== ENCOUNTER → 2022-02-23 09:49 | Outpatient (BNVA) | payer MEDICAID, SELFPAY | PROVIDERS: PCP Family Medicine; Visit Provider Physician Assistant | DX: Z47.89 Encounter for other orthopedic aftercare (principal); Z98.1 Arthrodesis status | CPT/HCPCS: 72040; 99024 ==

== ENCOUNTER 2022-02-24 | Day surgery (SDC) | payer MEDICAID, SELFPAY ==
[2022-02-24 11:07] VITALS: BMI 38.0
[2022-02-24 13:10] LABS: Basophils % 0.5 %; Eosinophils # 0.5 10^3/uL (0.0-0.8); Eosinophils % 5.7 %; Hematocrit 42.9 % (37.0-47.0); Hemoglobin 13.8 g/dL (11.5-15.3); Lymphocytes # 2.6 10^3/uL (0.8-4.8); Lymphocytes % 32.8 %; Mean Corpuscular HGB Conc 32.2 g/dL (30.0-36.0); Mean Corpuscular Hemoglobin 32.2 pg (28.0-34.0); Mean Platelet Volume 10.6 fL (7.4-10.4); Monocytes # 0.7 10^3/uL (0.2-0.9); Monocytes % 8.3 %; Neutrophils # 4.17 10^3/uL (1.8-7.7); Neutrophils % 52.3 %; Nucleated Red Blood Cells % 0 %; Platelet Count 414 10^3/cmm (130-400); Red Blood Count 4.29 10^6/uL (4.1-5.3); Red Cell Distribution Width 13.2 % (12.1-15.1)
[2022-02-24 14:05] LABS: Anion Gap 15.8 (5-19); Blood Urea Nitrogen 16 mg/dL (8-23); Carbon Dioxide 24 mmol/L (22-29); Chloride 102 mmol/L (98-107); Glucose 69 mg/dL (65-115); Osmolality Calculated 286 mOsm/kg (285-295); Potassium 3.8 mmol/L (3.5-5.1); Sodium 138 mmol/L (136-145)
--- NOTE | 2022-02-24 14:43 | ANES.PREANE2 ---
Pre-Anesthetic Assessment Height/Weight: Height 1.52 m Weight 88.451 kg Preop Diagnosis: Cervical Spondylosis with Radiculopathy, S/P Cervical Fusion Operation Date: 03/06/22 13:05 Proposed Procedures p left total hip arthroplasty/ 69617,M16.12(Left) - Greg Brown MD Familial anesthetic complications: none Was Beta He taken within 24 hours: N/A Was Clonidine taken within 24 hours: N/A Social Tobacco and No alcohol Exam alert, oriented x 3 and regular rate & rhythm Airway Submandibular: within normal limits Cervical ROM: within normal limits Mallampati: Class II Dentition: chipped Comments: Comments: underbite Pulmonary Chronic Obstructive Pulmonary Disease CV/HEM Hypertension and Murmur GI Gastroesophageal Reflux Disease Metabolic Morbid Obesity Anesthetic Plan ASA status: 3 Anesthesia: Regional (specify below) (SAB) Medications/Allergies Home Medications Medication Instructions Recorded Confirmed Last Taken Type albuterol sulfate 90 mcg/actuation 1 inh inhalation QID PRN Shortness 12/14/20 02/24/22 11/20/21 History aerosol inhaler Of Breath amlodipine 10 mg tablet 10 mg PO DAILY 12/14/20 02/24/22 11/22/21 History fluoxetine 40 mg capsule 40 mg PO DAILY 12/14/20 02/24/22 11/22/21 History hydrochlorothiazide 25 mg tablet 25 mg PO DAILY 12/14/20 02/24/22 11/22/21 History ibuprofen 200 mg capsule 200 mg PO Q6H PRN Pain 12/14/20 02/24/22 11/11/21 History montelukast 10 mg tablet 10 mg PO BEDTIME 12/14/20 02/24/22 11/22/21 History CURAMIN 08/29/21 02/23/22 Unknown History hydroxychloroquine 200 mg tablet 200 mg PO BID #60 tabs 10/13/21 02/24/22 11/22/21 Rx acetaminophen 500 mg tablet 1,000 mg PO QID PRN Pain 11/15/21 02/24/22 11/22/21 History diclofenac sodium 1 % topical gel 1 ea topical PRN PRN Pain 02/24/22 02/24/22 Unknown History (Voltaren Arthritis Pain) [id number]-acetaminophen 7.5 1 ml PO PRN PRN Allergy Symptoms 02/24/22 02/24/22 Unknown History mg-60 [id number]/30mL oral liqd hydrocodone 5 mg-acetaminophen 325 1 - 2 tab PO .Q4-6H PRN Pain 02/24/22 02/24/22 Unknown History mg tablet Allergies Allergy/AdvReac Type Severity Reaction Status Date / Time No Known Allergies Allergy Verified 02/24/22 11:02 [facility] Anesthesia Social History Smoking and tobacco status: current every day smoker cigarettes Packs smoked per day: 1 Alcohol intake: current Alcohol intake frequency: few times a week Alcohol type: wine History of recent travel: No Data Anesthesia : 02/24/22 11:20 02/24/22 11:20 Short CBC 02/24/22 Range/Units 11:20 WBC 8.0 (4.0-10.0) 10^3/uL Hgb 13.8 (11.5-15.3) g/dL Hct 42.9 (37.0-47.0) % MCV 100.0 H (81-99) fl Plt Count 414 H (130-400) 10^3/cmm Neut % (Auto) 52.3 % Neut # (Auto) 4.17 (1.8-7.7) 10^3/uL BMP 02/24/22 11:20 Sodium 138 Potassium 3.8 Chloride 102 Carbon Dioxide 24 BUN 16 Creatinine 0.5 Glucose 69 Calcium 10.0 Cardiac Studies: No Data to Display
== END 2022-02-24 23:00 | disposition home or self-care (01) ==
PROVIDERS: Anesthesiology; PCP Family Medicine; Visit Provider Orthopaedic Surgery
DX: Z01.818 Encounter for other preprocedural examination (principal)
CPT/HCPCS: 80048; 85025

== ENCOUNTER 2022-03-06 17:35 | Observation (INO) | payer MEDICAID, SELFPAY ==
[2022-03-06] VITALS (16 sets, daily range): BP systolic 84–129; BP diastolic 63–94; PULSE 65–90; RESP 14–18; TEMP 36.4–37; O2SAT 88–98; BMI 38.0; BMI 39.6
[2022-03-06] MEDS: sodium chloride 0.9% 1,000 ML 30 ML IV (11:58)
[2022-03-06] MEDS: acetaminophen 500 mg Tablet 1000 MG PO ×2 (11:58→21:23)
[2022-03-06] MEDS: oxyCODONE 20 mg ER (12 HR) Tablet PO (11:59)
[2022-03-06] MEDS: CELEcoxib 200 mg Capsule 400 MG PO (11:59)
[2022-03-06] MEDS: gabapentin 300 mg Capsule PO ×2 (12:04→17:55)
--- NOTE | 2022-03-06 12:40 | P.ANESUD_ITS ---
Pre-Anesthetic Update Pre-Anesthetic Assessment: Date of Surgery/Procedure: 03/06/22 Preop Manda gnosis: Osteoarthritisleft hip Proposed Procedure: Operation Date: 03/06/22 12:45 Proposed Procedures p left total hip arthroplasty/ 74434,M16.12(Left) - Greg Brown MD Any changes to Pre-Anesthetic Assessment?: No Last Intake: Intake Last Liquid Date 03/05/22 Last Liquid Time 21:00 Last Solid Date 03/05/22 Last Solid Time 21:00 Vitals: Temperature 97.7 F 03/06/22 11:47 Temperature Source Temporal Artery S can 03/06/22 11:47 Pulse Rate 70 03/06/22 11:47 Respiratory Rate 17 03/06/22 11:59 Blood Pressure 123/92 03/06/22 11:47 Blood Pressure Jessica n 102 03/06/22 11:47 Pulse Oximetry 97 03/06/22 11:59 Oxygen Delivery Me thod 03/06/22 11:48 Exam: Pre-Anes Outpt Exam: alert, oriented x 3, clear to auscultation bilaterally and regular rate & rhythm Cardiac Studies: No Data to Display
--- NOTE | 2022-03-06 12:42 | P.HP_ITS ---
Same Day Surgery H&P Indication for Procedure/HPI DATE OF PROCEDURE: March 06, 2022 CHIEF COMPLAINT/INDICATIONFOR SURGICAL PROCEDURE: Osteoarthritis left hip here for left total hip arthroplasty PREOP DIAGNOSIS: Osteoarthritisleft hip PLANNED PROCEDURE: Operation Date: 03/06/22 12:45 Proposed Procedures p left total hip arthroplasty/ [id number],M16.12(Left) - Greg Brown MD 62 year old female patient here for left total hip arthroplasty.. Patient states that she has recently recovered from cervical spine surgery with Dr. Pfeiffer. She states that her pain is located in her groin and radiates down the leg. She states that her pain is increased with prolonged standing, prolonged, walking, prolonged sitting, and bending.? He can hardly walk even from the parking lot here.? He describes severe pain at night.? She is has significant pain with ambulating stairs.? He has worked at [employer] in the kitchen.? S he states it became impossible for her to continue with her job and she has now taken a leave of absence to address medical issues.? She describes her left hip pain is identical to the right.? she states that she been taking Tylenol for pain/discomfort. She has a history of a right total hip arthroplasty 8 years ago, which she recovered very well from.? Medications/Allergies* Home Medications Medication Instructions Recorded Confirmed Type albuterol sulfate 90 mcg/actuation 1 inh inhalation QID PRN Shortness 12/14/20 03/06/22 History aerosol inhaler Of Breath amlodipine 10 mg tablet 10 mg PO DAILY 12/14/20 03/06/22 History fluoxetine 40 mg capsule (Prozac) 40 mg PO DAILY 12/14/20 03/06/22 History hydrochlorothiazide 25 mg tablet 25 mg PO DAILY 12/14/20 03/06/22 History ibuprofen 200 mg capsule 200 mg PO Q6H PRN Pain 12/14/20 03/06/22 History montelukast 10 mg tablet 10 mg PO BEDTIME 12/14/20 03/06/22 History CURAMIN 08/29/21 02/23/22 History acetaminophen 500 mg tablet 1,000 mg PO QID PRN Pain 11/15/21 03/06/22 History diclofenac sodium 1 % topical gel 1 ea topical PRN PRN Pain 02/24/22 03/06/22 History (Voltaren Arthritis Pain) [id number]-acetaminophen 7.5 1 ml PO PRN PRN Allergy Symptoms 02/24/22 03/06/22 History mg-60 [id number]/30mL oral liqd hydrocodone 5 mg-acetaminophen 325 1 - 2 tab PO .Q4-6H PRN Pain 02/24/22 03/06/22 History mg tablet Allergies/Adverse Reactions Allergy/AdvReac Type Severity Reaction Status Date / Time hydrocodone Allergy ADR-Itching Verified 03/06/22 11:42 Current Medications: Generic Name Dose Route Start Last Admin Trade Name Freq PRN Reason Stop Dose Admin Sodium Chloride 1,000 mls @ 30 mls/hr 03/06/22 11:30 03/06/22 11:58 Sodium Chloride 0.9% IV 03/07/22 11:29 30 mls/hr .Q24H ES Administration Pertinent History/Comorbid Conditions* Social History Smoking and tobacco status: current every day smoker cigarettes Packs smoked per day: 1 Alcohol intake: current Alcohol intake frequency: few times a week Alcohol type: wine History of recent travel: No Pertinent Exam Findings alert, oriented x 3, clear to auscultation bilaterally and regular rate & rhythm Left hip The left hip can be flexed to 90 degrees externally rotated 20 degrees and internal rotation 10 degrees He has pain with all extremes of motion MOTOR: Strong quadriceps hamstrings tibialis anterior and extensor houses longus strength SENSATION: Intact to light touch ? Recommendations Surgery/Procedure today Coding Level of Care Code Acute Lamination Spinner for Adrienne Aldrich
[2022-03-06] MEDS: ceFAZolin 2,000 MG in sodium chloride 0.9% (plus) 50 ML 100 MG IV ×2 (13:10→21:23)
[2022-03-06] MEDS: tranexamic acid 1,000 mg/10mL SDV 1000 MG IV (13:30)
[2022-03-06] MEDS: sodium chloride 0.9% 100 mL Bag XX (13:50)
--- NOTE | 2022-03-06 14:56 | P.OP_ITS ---
Operative Report Date of procedure: March 06, 2022 Pre-op diagnosis: Preop Diagnosis Osteoarthritisleft LEFT hip Post-op diagnosis: same Post-op diagnosis: Same Procedure done: Left total hip arthroplasty Implants: 1) Justice 52 mm Trident 2 solid back acetabular shell 2) Size 4 Justice 127 degree neck angle Accolade 2 stem 3} 28mm -2.5 standard ceramic femoral head 4} size E MDM metal liner Pathology: none sent Surgeon: Greg Brown Anesthesia: General Estimated blood loss (mL): 100 Complications: None Findings: The patient eburnated bone over the left superior femoral head and acetabulum Condition: stable Disposition: PACU Procedure: The patient was taken to the operating room and anesthesia provided by the anesthesia service. The patient was placed in the lateral position on a pegboard. A timeout was performed. The patient was draped in the usual fashion. A 15 cm long incision was made beginning just proximal to the greater trochanter and extending posteriorly to a point just distal to the trochanter on the posterior border of the trochanter. Dissection was carried down with electrocautery through the subcutaneous fat to the fascia deedee which was divided proximally and distally with curved scissors. The anterior two thirds of the gluteus medius and minimus were elevated off the hip with electrocautery. The capsule was divided in a H-like fashion. The hip was dislocated and a neck cut made just above the level of the lesser trochanter. Exposure of the acetabulum was facilitated with the acetabular retractors. Remnants of labrum and peripheral osteophytes were removed with electrocautery and a rongeur. A reamer 2 mm under the size the femoral head was utilized to ream medially to the base of the palm and are. Reaming was then increased in 1 mm intervals until a healthy rim a trabecular bone was encountered. The rim was touched with the reamer the size of the final acetabular shell to be placed. A final Trident 2 acetabular cup of the same size as the final reaming was press- fit into place. The ADM liner was secured. Attention was then focused on the femur. The canal was localized with a canal finder. Broaching was then accomplished until a stable broach size was obtained. A trial reduction with the head and neck provided excellent stability. The wound was irrigated with saline and antibiotic solution. The final Bethany Accolade II stem was press-fit into place. The femoral head was placed and the hip was reduced. The hip was brought through range of motion and found to be free of impingement and stable. The anterior capsule was reapproximated with 1 Ethibond. The gluteus medius and minimus were repaired through bone with 5 Ethibond and reinforced with 1 Ethibond. The fascial deedee was closed with a running 0 Stratafix suture. Deep pelvic tissues were closed with 2-0 Stratafix and the skin with a running 4-0 l Stratafix. The skin was covered with a Prineo dressing and op site dressings.
--- NOTE | 2022-03-06 15:00 | XRR_ITS ---
PROCEDURE INFORMATION: Exam: XR Left Hip Exam date and time: 03/06/2022 3:02 PM Age: 62 years old Clinical indication: Device placement; Other: Left total hip arthroplasty; Prior surgery; Surgery date: Post-operative (0-2 days) TECHNIQUE: Imaging protocol: Radiologic exam of the Left hip. Views: 1 view hip with pelvis when performed. COMPARISON: CR XR hip LT 2-3V wo/w pel* [id number] 11/15/2021 4:22 PM FINDINGS: Bones/joints: Interval placement of total left hip prosthesis in good alignment on this single projection. No acute fracture. Probable mild osteopenia. Soft tissues: Soft tissue swelling and trace amount of soft tissue air laterally, presumably postop. Other findings: Single AP view submitted. XR/XR hip LT 1V wo/[place] pel [id number] IMPRESSION: Limited single view with left hip replacement in good alignment.
--- NOTE | 2022-03-06 15:40 | ANE.PACU2 ---
Inpatient post-anesthesia follow up: Airway intact: Yes Vital signs: Temperature 97.9 F Pulse Rate 70 Respiratory Rate 18 Blood Pressure 128/76 Pulse Oximetry 92 Oxygen Delivery Me thod Room Air Oxygen Flow Rate 6 Fraction of Inspir ed Oxygen Hydration adequate: Yes Nausea and vomiting: No Pain level: 2 Mental status: Baseline
[2022-03-06] MEDS: hydroxychloroquine 200 mg Tablet PO (17:55)
[2022-03-06] MEDS: oxyCODONE 5 mg IR Tab/Cap PO ×2 (17:55→21:58)
[2022-03-06] MEDS: nicotine 21 mg Patch 1 PATCH TRANSDERMA (18:27)
[2022-03-06] MEDS: montelukast sodium 10 mg Tablet PO (21:23)
[2022-03-07] VITALS (8 sets, daily range): BP systolic 102–128; BP diastolic 67–76; PULSE 68–73; RESP 15–18; TEMP 36.6–37.3; O2SAT 92–93
[2022-03-07] MEDS: CELEcoxib 200 mg Capsule PO ×2 (00:48→11:57)
[2022-03-07] MEDS: oxyCODONE 5 mg IR Tab/Cap PO ×3 (02:42→11:57)
[2022-03-07] MEDS: ceFAZolin 2,000 MG in sodium chloride 0.9% (plus) 50 ML 100 MG IV ×2 (04:57→11:58)
[2022-03-07] MEDS: acetaminophen 500 mg Tablet 1000 MG PO ×2 (04:59→11:57)
[2022-03-07] MEDS: fluoxetine 20 mg Capsule 40 MG PO (07:52)
[2022-03-07] MEDS: hydroxychloroquine 200 mg Tablet PO (07:52)
[2022-03-07] MEDS: gabapentin 300 mg Capsule PO (07:52)
[2022-03-07] MEDS: alum-mag-hydroxide-sime 30 mL UDC PO (09:34)
--- NOTE | 2022-03-07 09:47 | PC.SOCIAL ---
Pre Cert for walker completed. Pre-Cert number assigned: [id number]
== END 2022-03-07 13:40 | disposition home health service (06) ==
LOC: MEDSURG 23:50
PROVIDERS: Admitting Provider Orthopaedic Surgery; PCP Family Medicine; Visit Provider Orthopaedic Surgery
PROC: (CPT 27130; principal; 2022-03-06 12:25)
DX: M16.12 Unilateral primary osteoarthritis, left hip (principal); Z98.890 Other specified postprocedural states; Z96.641 Presence of right artificial hip joint; F17.210 Nicotine dependence, cigarettes, uncomplicated
CPT/HCPCS: 27130; 36415; 73501; 85018; 97161; 97165; 97530; C1776; G0378; J0690; J1580; J2704; J3490; J7030

== ENCOUNTER → 2022-03-13 09:30 | Outpatient (BNVA) | payer MEDICAID, SELFPAY | PROVIDERS: PCP Family Medicine; Visit Provider Nurse Practitioner Family | DX: Z96.642 Presence of left artificial hip joint (principal) | CPT/HCPCS: 99024 ==

== ENCOUNTER → 2022-04-05 10:25 | Outpatient (BNVA) | payer MEDICAID, SELFPAY | PROVIDERS: PCP Family Medicine; Visit Provider Nurse Practitioner Family | DX: Z96.642 Presence of left artificial hip joint (principal); Z47.89 Encounter for other orthopedic aftercare | CPT/HCPCS: 73502; 99024 ==

== ENCOUNTER 2022-04-17 08:39 | Outpatient (CLI) | payer MEDICAID, SELFPAY ==
[2022-04-17 09:36] LABS: Basophils % 0.2 %; Eosinophils # 0.4 10^3/uL (0.0-0.8); Hematocrit 43.2 % (37.0-47.0); Hemoglobin 13.6 g/dL (11.5-15.3); Lymphocytes # 2.8 10^3/uL (0.8-4.8); Lymphocytes % 32.1 %; Mean Corpuscular HGB Conc 31.5 g/dL (30.0-36.0); Mean Corpuscular Volume 101.6 fl (81-99); Mean Platelet Volume 10.1 fL (7.4-10.4); Monocytes # 0.6 10^3/uL (0.2-0.9); Neutrophils % 55.5 %; Nucleated Red Blood Cells % 0 %; Platelet Count 447 10^3/cmm (130-400); Red Blood Count 4.25 10^6/uL (4.1-5.3); Red Cell Distribution Width 14.1 % (12.1-15.1); White Blood Count 8.8 10^3/uL (4.0-10.0)
[2022-04-17 09:47] LABS: Erythrocyte Sedimentation Rate 18 mm/hr (0-15)
[2022-04-17 10:01] LABS: Alanine Aminotransferase 11 U/L (0-33); Albumin Level 4.4 g/dL (3.5-5.2); Alkaline Phosphatase 87 U/L (35-105); Anion Gap 14.8 (5-19); Aspartate Amino Transferase 14 U/L (0-32); Blood Urea Nitrogen 9 mg/dL (8-23); C Reactive Protein 3.8 mg/L (0.0-4.9); Carbon Dioxide 26 mmol/L (22-29); Chloride 102 mmol/L (98-107); Globulin 3.3 g/dL (1.3-4.6); Glomerular Filtration Rate 101.3 mL/min (90-130); Glucose 83 mg/dL (65-115); Osmolality Calculated 286 mOsm/kg (285-295); Potassium 3.8 mmol/L (3.5-5.1); Sodium 139 mmol/L (136-145); Total Bilirubin 0.2 mg/dL (0.15-1.2); Total Protein 7.7 g/dL (6.6-8.7)
== END 2022-04-17 08:40 | disposition home or self-care (01) ==
LOC: LAB 08:41
PROVIDERS: PCP Family Medicine; Visit Provider Internal Medicine
DX: M06.9 Rheumatoid arthritis, unspecified (principal); M53.3 Sacrococcygeal disorders, not elsewhere classified; M51.37 Other intervertebral disc degeneration, lumbosacral region; Z79.899 Other long term (current) drug therapy
CPT/HCPCS: 36415; 80053; 85025; 85651; 86140

== ENCOUNTER → 2022-05-09 10:43 | Outpatient (BNVA) | payer MEDICAID, SELFPAY | PROVIDERS: PCP Family Medicine; Visit Provider Anesthesiology Pain Medicine | DX: M54.12 Radiculopathy, cervical region (principal); M47.812 Spondylosis without myelopathy or radiculopathy, cervical region; M51.37 Other intervertebral disc degeneration, lumbosacral region; M79.605 Pain in left leg; M79.604 Pain in right leg; M53.3 Sacrococcygeal disorders, not elsewhere classified; Z98.1 Arthrodesis status | CPT/HCPCS: 99214 ==

== ENCOUNTER → 2022-05-10 08:07 | Outpatient (BNVA) | payer MEDICAID, SELFPAY | PROVIDERS: PCP Family Medicine; Visit Provider Podiatrist Foot & Ankle Surgery | DX: M19.071 Primary osteoarthritis, right ankle and foot (principal); M19.072 Primary osteoarthritis, left ankle and foot; M21.611 Bunion of right foot; M21.612 Bunion of left foot; M21.621 Bunionette of right foot; M21.622 Bunionette of left foot; M20.41 Other hammer toe(s) (acquired), right foot; M20.42 Other hammer toe(s) (acquired), left foot | CPT/HCPCS: 99213 ==

== ENCOUNTER → 2022-05-11 13:38 | Outpatient (BNVA) | payer MEDICAID, SELFPAY | PROVIDERS: PCP Family Medicine; Visit Provider Internal Medicine | DX: M47.812 Spondylosis without myelopathy or radiculopathy, cervical region (principal); M06.9 Rheumatoid arthritis, unspecified; M51.37 Other intervertebral disc degeneration, lumbosacral region; D75.89 Other specified diseases of blood and blood-forming organs; R05.9 Cough, unspecified | CPT/HCPCS: 72040; 99214 ==

== ENCOUNTER → 2022-06-29 10:02 | Outpatient (BNVA) | payer MEDICAID, SELFPAY | PROVIDERS: PCP Family Medicine; Visit Provider Nurse Practitioner Family | DX: Z96.642 Presence of left artificial hip joint (principal) | CPT/HCPCS: 73502; 99213 ==

== ENCOUNTER → 2022-07-05 10:04 | Outpatient (BNVA) | payer MEDICAID, SELFPAY | PROVIDERS: PCP Family Medicine; Visit Provider Anesthesiology Pain Medicine | DX: G89.28 Other chronic postprocedural pain (principal); M51.37 Other intervertebral disc degeneration, lumbosacral region; M54.12 Radiculopathy, cervical region; M47.812 Spondylosis without myelopathy or radiculopathy, cervical region; M53.3 Sacrococcygeal disorders, not elsewhere classified; M79.605 Pain in left leg; Z98.1 Arthrodesis status; M79.604 Pain in right leg; Z98.890 Other specified postprocedural states | CPT/HCPCS: 99214 ==

== ENCOUNTER → 2022-07-27 13:03 | Outpatient (BNVA) | payer MEDICAID, SELFPAY | PROVIDERS: PCP Family Medicine; Visit Provider Anesthesiology Pain Medicine | DX: M47.816 Spondylosis without myelopathy or radiculopathy, lumbar region (principal) | CPT/HCPCS: 64493; 64494; 64495; J3490 ==

== ENCOUNTER → 2022-08-10 13:05 | Outpatient (BNVA) | payer MEDICARE, MEDICAID, SELFPAY | PROVIDERS: PCP Family Medicine; Visit Provider Anesthesiology Pain Medicine | DX: M47.816 Spondylosis without myelopathy or radiculopathy, lumbar region (principal) | CPT/HCPCS: 64493; 64494; 64495; J3490 ==

== ENCOUNTER → 2022-08-16 09:38 | Outpatient (BNVA) | payer MEDICARE, MEDICAID, SELFPAY | PROVIDERS: PCP Family Medicine; Visit Provider Internal Medicine | DX: M06.9 Rheumatoid arthritis, unspecified (principal); D75.89 Other specified diseases of blood and blood-forming organs; M51.37 Other intervertebral disc degeneration, lumbosacral region | CPT/HCPCS: 36415; 80053; 82550; 85025; 85651; 86140; 99214 ==

== ENCOUNTER → 2022-08-17 08:08 | Outpatient (BNVA) | payer MEDICARE, MEDICAID, SELFPAY | PROVIDERS: PCP Family Medicine; Visit Provider Physician Assistant | DX: Z98.1 Arthrodesis status (principal); Z48.89 Encounter for other specified surgical aftercare | CPT/HCPCS: 72040; 99213 ==

== ENCOUNTER → 2022-08-23 10:22 | Outpatient (BNVA) | payer MEDICAID, SELFPAY | PROVIDERS: PCP Family Medicine; Visit Provider Anesthesiology Pain Medicine | DX: G89.28 Other chronic postprocedural pain (principal); M54.12 Radiculopathy, cervical region; M47.812 Spondylosis without myelopathy or radiculopathy, cervical region; M53.3 Sacrococcygeal disorders, not elsewhere classified; M51.37 Other intervertebral disc degeneration, lumbosacral region; M79.604 Pain in right leg; M79.605 Pain in left leg; Z98.890 Other specified postprocedural states; Z98.1 Arthrodesis status | CPT/HCPCS: 99214 ==

== ENCOUNTER 2022-09-21 14:53 | Outpatient (CLI) | payer MEDICARE, MEDICAID, SELFPAY ==
[2022-10-04 02:24] LABS: 14.3.3 ETA Protein <0.2 ng/mL (<0.2)
== END 2022-09-21 14:54 | disposition home or self-care (01) ==
PROVIDERS: PCP Family Medicine; Visit Provider Nurse Practitioner Family
DX: R21 Rash and other nonspecific skin eruption (principal); K11.7 Disturbances of salivary secretion; L57.0 Actinic keratosis; L57.8 Other skin changes due to chronic exposure to nonionizing radiation; L81.4 Other melanin hyperpigmentation; D22.5 Melanocytic nevi of trunk; L85.3 Xerosis cutis; Z71.89 Other specified counseling
CPT/HCPCS: 17000; 17003; 36415; 80053; 83520; 85025; 85651; 86140; 99204

== ENCOUNTER 2022-09-22 09:45 | Outpatient (CLI) | payer MEDICARE, MEDICAID, SELFPAY ==
[2022-09-25 12:15] LABS: COMPLEMENT COMPONENT C3C 130 mg/dL (83-193); COMPLEMENT COMPONENT C4C 24 mg/dL (15-57)
[2022-09-25 13:09] LABS: COMPLEMENT, TOTAL (CH50) 56 U/mL (31-60)
[2022-09-25 14:20] LABS: THYROID PEROXIDASE ANTIBODIES 1 IU/mL (<9)
[2022-09-25 15:35] LABS: ANA SCREEN, IFA NEGATIVE (NEGATIVE)
[2022-09-26 14:03] LABS: DNA AB (DS) CRITHIDIA,IFA NEGATIVE (NEGATIVE)
[2022-09-26 14:09] LABS: CENTROMERE B ANTIBODY <1.0 NEG AI (<1.0 NEG); JO-1 ANTIBODY <1.0 NEG AI (<1.0 NEG); RNP ANTIBODY <1.0 NEG AI (<1.0 NEG); SCL-70 ANTIBODY <1.0 NEG AI (<1.0 NEG); SJOGREN'S ANTIBODY (SS-A) <1.0 NEG AI (<1.0 NEG); SM ANTIBODY <1.0 NEG AI (<1.0 NEG); SS-B <1.0 NEG AI (<1.0 NEG)
== END 2022-09-22 09:46 | disposition home or self-care (01) ==
LOC: LAB 09:48
PROVIDERS: PCP Family Medicine; Visit Provider Nurse Practitioner Family
DX: K11.7 Disturbances of salivary secretion (principal)
CPT/HCPCS: 86160; 86162; 86235; 86255; 86376

== ENCOUNTER 2022-10-27 12:40 | Outpatient (CLI) | payer MEDICARE, MEDICAID, SELFPAY ==
--- NOTE | 2022-10-27 13:01 | MM_ITS ---
WS: [id number] BILATERAL 3D TOMOSYNTHESIS DIGITAL SCREENING MAMMOGRAPHY WITH CAD CLINICAL INFORMATION: SCREENING HISTORY: Screening mammogram. No current complaints. COMPARISON: August 17, 2021 TECHNIQUE: Bilateral CC and MLO views. FINDINGS: Scattered fibroglandular densities bilaterally. No suspicious focal mass, asymmetry, calcifications, or architectural distortion. No evidence of malignancy. A few punctate lucent centered calcifications . MM/[place] [id number] IMPRESSION: BI-RADS: 2-Benign FOLLOW UP: 1 Year Follow-up Recommend return to annual screening mammography.
== END 2022-10-27 12:41 | disposition home or self-care (01) ==
PROVIDERS: PCP Family Medicine; Visit Provider Family Medicine
DX: Z12.31 Encounter for screening mammogram for malignant neoplasm of breast (principal)
CPT/HCPCS: 77063; 77067

== ENCOUNTER 2022-11-10 11:47 | Outpatient (CLI) | payer MEDICARE, MEDICAID, SELFPAY ==
--- NOTE | 2022-11-10 11:55 | CT_ITS ---
WS: [id number] LDCT LUNG CANCER SCREENING HISTORY: NICOTINE DEPENDENCE, CIGARETTES TECHNIQUE: Axial imaging performed from the apices to 1 cm below the costophrenic angles. Coronal and sagittal reformats are submitted with axial MIP series. All CT scans at [facility] use at least one of these dose optimization techniques: automated exposure control; mA and/or kV adjustment per patient size (includes targeted exams where dose is matched to clinical indication); or iterativ e reconstruction. DLP: 78.62 mGy.cm DIvol: Mean CTDIvol: 1.90 (mGy) COMPARISON: 09/22/2020 Diagnostic quality: Satisfactory Lungs: Mild elevation of the RIGHT hemidiaphragm. No new or suspicious mass or nodule. Mild pleural t hickening posterior RIGHT upper thorax has been stable over multiple prior years measuring up to 7 mm in diameter. Cluster of bronchial calcifications in the RIGHT lower lobe. These are also stable over multiple prior years. No endobronchial lesions. Heart: Normal size heart with no pericardial effusion.. Moderate coronary artery calcifications. Other findings: Large to moderate-sized hiatal hernia. Normal size pulmonary artery. No adrenal mass. Mild increase in thoracic kyphosis. Moderate thoracic spondylitic changes. Remote healed rib fractur es in the posterior RIGHT thorax. CT/CT lung screening [id number] IMPRESSION: LUNG-RADS: 2-Benign Appearance or Behavior FOLLOW UP: 12 Month: Continue annual screening with LDCT OTHER FINDINGS (S MODIFIER): None.
== END 2022-11-10 11:48 | disposition home or self-care (01) ==
LOC: RAD 11:49
PROVIDERS: PCP Family Medicine; Visit Provider Family Medicine
DX: Z12.2 Encounter for screening for malignant neoplasm of respiratory organs (principal); F17.210 Nicotine dependence, cigarettes, uncomplicated
CPT/HCPCS: 71271

== ENCOUNTER → 2022-11-14 10:07 | Outpatient (BNVA) | payer MEDICARE, MEDICAID, SELFPAY | PROVIDERS: PCP Family Medicine; Visit Provider Physician Assistant | DX: Z98.1 Arthrodesis status (principal); Z98.890 Other specified postprocedural states; M54.2 Cervicalgia; G89.28 Other chronic postprocedural pain | CPT/HCPCS: 72040; 99214 ==

== ENCOUNTER → 2022-11-22 11:20 | Outpatient (BNVA) | payer MEDICARE, MEDICAID, SELFPAY | PROVIDERS: PCP Family Medicine; Visit Provider Nurse Practitioner Family | DX: D22.5 Melanocytic nevi of trunk (principal) | CPT/HCPCS: 17000; 17003; 99213 ==

== ENCOUNTER → 2022-12-18 11:03 | Outpatient (BNVA) | payer MEDICARE, MEDICAID, SELFPAY | PROVIDERS: PCP Family Medicine; Visit Provider Internal Medicine | DX: M06.9 Rheumatoid arthritis, unspecified; M51.37 Other intervertebral disc degeneration, lumbosacral region; M70.60 Trochanteric bursitis, unspecified hip; Y93.9 Activity, unspecified | CPT/HCPCS: 99214 ==

== ENCOUNTER → 2022-12-26 10:14 | Outpatient (BNVA) | payer MEDICARE, MEDICAID, SELFPAY | PROVIDERS: PCP Family Medicine; Visit Provider Internal Medicine | DX: Z71.89 Other specified counseling (principal); M06.9 Rheumatoid arthritis, unspecified; M51.37 Other intervertebral disc degeneration, lumbosacral region; M70.61 Trochanteric bursitis, right hip; Y93.9 Activity, unspecified | CPT/HCPCS: 20552; 99213 ==

== ENCOUNTER → 2023-03-01 12:57 | Outpatient (BNVA) | payer MEDICARE, MEDICAID, SELFPAY | PROVIDERS: PCP Family Medicine; Visit Provider Orthopaedic Surgery | DX: M47.812 Spondylosis without myelopathy or radiculopathy, cervical region (principal); M54.2 Cervicalgia; G89.28 Other chronic postprocedural pain; Z98.890 Other specified postprocedural states; Z98.1 Arthrodesis status | CPT/HCPCS: 72040; 99214 ==

== ENCOUNTER → 2023-03-07 13:17 | Outpatient (BNVA) | payer MEDICARE, MEDICAID, SELFPAY | PROVIDERS: PCP Family Medicine; Visit Provider Nurse Practitioner | DX: M70.61 Trochanteric bursitis, right hip; M70.62 Trochanteric bursitis, left hip; Z96.642 Presence of left artificial hip joint; Z96.641 Presence of right artificial hip joint; M21.70 Unequal limb length (acquired), unspecified site | CPT/HCPCS: 73522; 99214 ==

== ENCOUNTER 2023-04-25 07:48 | Outpatient (CLI) | payer MEDICARE, MEDICAID, SELFPAY ==
--- NOTE | 2023-04-25 08:00 | MR_ITS ---
WS: [id number] MRI CERVICAL SPINE NONCONTRAST HISTORY: cervical fusion COMPARISON: 10/25/2021 Technique: Multiplanar, multisequence noncontrast imaging of the cervical spine. Quality of this examination is significantly compromised by motion and artifact. Prior anterior cervical fusion from C3-C7. Slight reversal of the normal cervical lordosis reidentifi ed at C3-4. Disc spaces are all narrowed. No signal abnormality in the cord appreciated on this study. Craniocervical junction, C1 and C2 relationship, odontoid process and soft tissues are normal. C7 anterolisthesis by 4.8 mm does appear progressed since the prior study. C2-C3: Shallow central disc protrusion C3-C4: Reversal of normal cervical lordosis encroaching upon the ventral thecal sac. Mild disc bulgin g. Foraminal osteophytes. Moderate central and bilateral foraminal stenosis. C4-C5: Osteophytic ridging and disc bulging. Moderate bilateral foraminal stenosis. C5-C6: Osteophytic ridging and disc bulging and facet arthritis. Moderate central and bilateral rocio inal stenosis. C6-C7: Mild bilateral foraminal stenosis. C7-T1: Mild bilateral foraminal T1-2: Shallow central disc protrusion. T1-2: Moderate bilateral foraminal stenosis. Stenosis. Paraspinal soft tissue are normal. IMPRESSION: 1. Anterior cervical fusion extends from C3-C7. Overall the alignment is unchanged. Continued slight reversal of the normal cervical lordosis at C3-4. 2. New slight anterolisthesis of C7 by 4.8 mm. 3. Multilevel areas of central and foraminal stenosis not significantly progressed since 10/25/2021. 4. Most significant stenosis from C3-4 through C5-6. Moderate central and bilateral foraminal stenosi s.
== END 2023-04-25 07:49 | disposition home or self-care (01) ==
LOC: RAD 07:49
PROVIDERS: PCP Family Medicine; Visit Provider Orthopaedic Surgery
DX: M48.02 Spinal stenosis, cervical region (principal); G89.28 Other chronic postprocedural pain; M54.2 Cervicalgia; Z98.1 Arthrodesis status; Z98.890 Other specified postprocedural states
CPT/HCPCS: 72141

== ENCOUNTER → 2023-04-26 08:10 | Outpatient (BNVA) | payer MEDICARE, MEDICAID, SELFPAY | PROVIDERS: PCP Family Medicine; Visit Provider Orthopaedic Surgery | DX: Z47.89 Encounter for other orthopedic aftercare (principal); Z98.1 Arthrodesis status; M48.02 Spinal stenosis, cervical region | CPT/HCPCS: 72040; 99214 ==

== ENCOUNTER 2023-05-25 08:45 | Outpatient (CLI) | payer OTHER, MEDICAID, SELFPAY ==
--- NOTE | 2023-05-25 09:17 | XR_ITS ---
WS: [id number] Exam: XR chest 2V* [id number] Date/Time of Exam: 05/25/2023 9:17 AM Reason For Exam: URI Comparison 07/30/2019. The lungs are fully inflated. No acute infiltrates are noted. Calcified granulomas scattered througho ut both lungs. Normal cardiomediastinal silhouette. Possible small hiatal hernia. No pleural effusion . Bony structures are intact. Degenerative change and slight levoscoliosis of the T-spine. Fusion maggy dware in the lower C-spine. IMPRESSION: 1. No acute cardiopulmonary finding. No change.
== END 2023-05-25 08:46 | disposition home or self-care (01) ==
LOC: RAD 08:47
PROVIDERS: PCP Family Medicine; Visit Provider Nurse Practitioner Family
DX: J06.9 Acute upper respiratory infection, unspecified (principal)
CPT/HCPCS: 71046

== ENCOUNTER → 2023-06-05 08:57 | Outpatient (BNVA) | payer OTHER, MEDICAID, SELFPAY | PROVIDERS: PCP Family Medicine; Visit Provider Anesthesiology Pain Medicine | DX: M79.605 Pain in left leg; G89.28 Other chronic postprocedural pain; Z98.890 Other specified postprocedural states; M54.12 Radiculopathy, cervical region; Z98.1 Arthrodesis status; M47.812 Spondylosis without myelopathy or radiculopathy, cervical region; M53.3 Sacrococcygeal disorders, not elsewhere classified; M51.37 Other intervertebral disc degeneration, lumbosacral region; M48.02 Spinal stenosis, cervical region; M51.26 Other intervertebral disc displacement, lumbar region; M47.816 Spondylosis without myelopathy or radiculopathy, lumbar region | CPT/HCPCS: 99214 ==

== ENCOUNTER → 2023-07-04 09:01 | Outpatient (BNVA) | payer OTHER, MEDICAID, SELFPAY | PROVIDERS: PCP Family Medicine; Visit Provider Anesthesiology Pain Medicine | DX: M47.812 Spondylosis without myelopathy or radiculopathy, cervical region (principal); Z98.1 Arthrodesis status; G89.28 Other chronic postprocedural pain; Z98.890 Other specified postprocedural states; M79.605 Pain in left leg; M54.12 Radiculopathy, cervical region; M53.3 Sacrococcygeal disorders, not elsewhere classified; M51.37 Other intervertebral disc degeneration, lumbosacral region; M48.061 Spinal stenosis, lumbar region without neurogenic claudication; M48.07 Spinal stenosis, lumbosacral region | CPT/HCPCS: 99214 ==

== ENCOUNTER 2023-07-10 07:41 | Outpatient (CLI) | payer OTHER, MEDICAID, SELFPAY ==
[2023-07-10 07:56] VITALS: PULSE 67; RESP 18; O2SAT 98
[2023-07-10] MEDS: albuterol 2.5 mg/3 mL Neb INHALATION (07:56)
[2023-07-10 08:01] VITALS: PULSE 70
== END 2023-07-10 07:42 | disposition home or self-care (01) ==
LOC: RT 07:41
PROVIDERS: PCP Family Medicine; Visit Provider Nurse Practitioner Family
DX: J45.909 Unspecified asthma, uncomplicated (principal); F17.200 Nicotine dependence, unspecified, uncomplicated
CPT/HCPCS: 94060; J7613

== ENCOUNTER → 2023-07-24 09:26 | Outpatient (BNVA) | payer OTHER, MEDICAID, SELFPAY | PROVIDERS: PCP Family Medicine; Visit Provider Internal Medicine Rheumatology | DX: Z79.899 Other long term (current) drug therapy (principal); R01.1 Cardiac murmur, unspecified; M51.37 Other intervertebral disc degeneration, lumbosacral region; M06.041 Rheumatoid arthritis without rheumatoid factor, right hand; M06.042 Rheumatoid arthritis without rheumatoid factor, left hand; Z71.85 Encounter for immunization safety counseling | CPT/HCPCS: 80076; 82306; 82565; 85025; 86140; 99214 ==

== ENCOUNTER 2023-07-31 07:49 | Outpatient (CLI) | payer OTHER, MEDICAID, SELFPAY ==
--- NOTE | 2023-07-31 08:00 | USCV_ITS ---
Leora Davila Age: 63 Gender: F : 1960 Exam Date: 07/31/2023 08:04 Ordering Phys: Mark Hilliard MD Technologist: Kellee Mak Exam Location: [facility] [place] Indication: Cardiac murmur BP: / HR: 74 Rhythm: Sinus Technical Quality: Adequate MEASUREMENTS (Male / Female) Normal Values 2D ECHO LV Diastolic Diameter PLAX 4.4 cm 4.2 - 5.9 / 3.9 - 5.3 cm IVS Diastolic Thickness 1.2 cm 0.6 - 1.0 / 0.6 - 0.9 cm IVS Systolic Thickness 1.8 cm LVPW Diastolic Thickness 1.3 cm 0.6 - 1.0 / 0.6 - 0.9 cm LVPW Systolic Thickness 1.2 cm LVOT Diameter 2.0 cm LV Ejection Fraction 2D Teich 63.2 % LV Ejection Fraction MOD 2C 78.9 % LV Ejection Fraction 2C AL 55.7 % LA Diameter 2.7 cm RA Systolic Volume 4C AL 18.1 ml RA Systolic Volume 4C MOD 17.8 ml Aorta at Sinotubular Diameter 2.8 cm IVC Diameter 1.0 cm M-MODE LA Ao Ratio MM 1.3 AV Cusp Separation MM 1.4 cm FINDINGS Left Ventricle Normal left ventricular size and systolic function, EF 56%. Mild left ventricular hypertrophy. No regional wall motion abnormalities. Right Ventricle The right ventricle is normal in size and function. Right Atrium The right atrium is normal in size. Left Atrium Mildly increased left atrial size. Mitral Valve Mild to moderate mitral valve regurgitation. Aortic Valve Minimally thickened aortic valve Tricuspid Valve Trace tricuspid valve regurgitation. Pulmonic Valve No gross abnormalities noted Pericardium No pericardial effusion. Aorta Normal aortic annulus size. IVC Inferior vena cava not visualized. CONCLUSIONS Normal left ventricular size and systolic function, EF 56%. Mild left ventricular hypertrophy. No regional wall motion abnormalities. Mild to moderate mitral valve regurgitation. Mildly increased left atrial size. Trace tricuspid valve regurgitation. Minimally thickened aortic valve with restricted mobility. There is no pericardial effusion. There are no intracardiac masses. Spectral Doppler studies were not performed Compared to the study from 05/10/2016, there is worsening of the mitral regurgitation and development of left atrial enlargement Dr José Miguel Castle MD FAC (Electronically Signed) Final Date: 03 August 2023 15:57 S
== END 2023-07-31 07:50 | disposition home or self-care (01) ==
LOC: RAD 07:49
PROVIDERS: PCP Family Medicine; Visit Provider Internal Medicine Rheumatology
DX: R01.1 Cardiac murmur, unspecified (principal); I51.7 Cardiomegaly; I34.0 Nonrheumatic mitral (valve) insufficiency
CPT/HCPCS: 93308

== ENCOUNTER → 2023-08-02 10:28 | Outpatient (BNVA) | payer OTHER, MEDICAID, SELFPAY | PROVIDERS: PCP Family Medicine; Visit Provider Anesthesiology Pain Medicine | DX: M47.812 Spondylosis without myelopathy or radiculopathy, cervical region (principal); Z98.1 Arthrodesis status; M79.605 Pain in left leg; G89.28 Other chronic postprocedural pain; Z98.890 Other specified postprocedural states; M54.12 Radiculopathy, cervical region; M53.3 Sacrococcygeal disorders, not elsewhere classified; M51.37 Other intervertebral disc degeneration, lumbosacral region | CPT/HCPCS: 99214 ==

== ENCOUNTER 2023-08-24 08:59 | Outpatient (CLI) | payer OTHER, MEDICAID, SELFPAY ==
[2023-08-24 09:09] LABS: Basophils % 0.5 %; Eosinophils # 0.4 10^3/uL (0.0-0.8); Eosinophils % 5.7 %; Hematocrit 44.9 % (36-47); Lymphocytes # 2.6 10^3/uL (0.8-4.8); Lymphocytes % 42.3 %; Mean Corpuscular HGB Conc 32.1 g/dL (30-55); Mean Corpuscular Volume 96.8 fl (85-98); Mean Platelet Volume 9.4 fL (7.4-10.4); Monocytes # 0.6 10^3/uL (0.2-0.9); Monocytes % 9.8 %; Neutrophils # 2.54 10^3/uL (1.8-7.7); Neutrophils % 41.4 %; Nucleated Red Blood Cells % 0 %; Platelet Count 324 10^3/cmm (157-399); Red Blood Count 4.64 10^6/uL (3.85-5.65); Red Cell Distribution Width 13.9 % (12.1-15.1); White Blood Count 6.14 10^3/uL (3.29-11.43)
[2023-08-24 09:30] LABS: Alanine Aminotransferase 14 U/L (0-33); Albumin Level 4.4 g/dL (3.5-5.2); Alkaline Phosphatase 81 U/L (35-105); Aspartate Amino Transferase 18 U/L (0-32); C Reactive Protein 5.1 mg/L (0.0-4.9); Globulin 3.8 g/dL (1.3-4.6); Glomerular Filtration Rate 84.5 mL/min (90-130); Total Bilirubin 0.4 mg/dL (0.15-1.2); Total Protein 8.2 g/dL (6.6-8.7)
== END 2023-08-24 09:00 | disposition home or self-care (01) ==
LOC: LAB 09:00
PROVIDERS: PCP Family Medicine; Visit Provider Internal Medicine Rheumatology
DX: Z79.899 Other long term (current) drug therapy (principal); M06.9 Rheumatoid arthritis, unspecified
CPT/HCPCS: 36415; 80076; 82565; 85025; 86140

== ENCOUNTER → 2023-10-04 08:47 | Outpatient (BNVA) | payer OTHER, MEDICAID, SELFPAY | PROVIDERS: PCP Family Medicine; Referring Provider Family Medicine; Visit Provider Surgery | DX: K21.9 Gastro-esophageal reflux disease without esophagitis (principal); Z80.0 Family history of malignant neoplasm of digestive organs | CPT/HCPCS: 99204 ==

== ENCOUNTER 2023-11-01 08:25 | Outpatient (CLI) | payer OTHER, MEDICAID, SELFPAY ==
--- NOTE | 2023-11-01 08:30 | MM_ITS ---
WS: [id number] VIEWS: MLO and CC views both breasts. 3D digital tomosynthesis is also included in this exam. Comparison made with prior exam of 10/04/2006, 02/11/2029, 06/05/2011, 03/03/2014, 03/23/2015, 07/03/2016 , 07/19/2017, 06/07/2020, 08/17/2021, 10/27/2022,. Findings: There was no sign of mass, architectural distortion or suspicious calcification in either breast. The re are scattered areas of fibroglandular density MM/[place] [id number] Impression: BI-RADS: 1-Negative FOLLOW-UP: 1 Year Follow-up This mammogram was also analyzed by the Computer Aided Detection System R2 Imag e Calculating Machine Operator.
== END 2023-11-01 08:26 | disposition home or self-care (01) ==
LOC: RAD 08:25
PROVIDERS: PCP Family Medicine; Visit Provider Family Medicine
DX: Z12.31 Encounter for screening mammogram for malignant neoplasm of breast (principal); R92.323 Mammographic fibroglandular density, bilateral breasts
CPT/HCPCS: 77063; 77067

== ENCOUNTER 2023-11-12 08:00 | Outpatient (CLI) | payer OTHER, MEDICAID, SELFPAY ==
--- NOTE | 2023-11-12 08:12 | CT_ITS ---
WS: [id number] LDCT LUNG CANCER SCREENING TECHNIQUE: Noncontrast CT of the chest with coronal and sagittal reformatted images. CLINICAL INFORMATION: NICOTINE DEPENDENCE,CIGARETTES COMPARISON: CT 11/10/2022 DLP: 77.71 mGy.cm DIvol: Mean CTDIvol: 1.90 (mGy) All CT scans at [facility] use at least one of these dose optimization techniques: automat ed exposure control; mA and/or kV adjustment per patient size (includes targeted exams where dose is matched to clinical indication); or iterative reconstruction. FINDINGS:7 mm pleural nodule in the RIGHT upper lobe posteriorly is unchanged. No new suspicious pulm onary parenchymal abnormalities. Moderate thoracic kyphosis with spondylitic changes. Postoperative changes in the cervical spine. Nor mal caliber thoracic aorta. Coronary calcification. Calcified subcarinal lymph nodes. Calcified granu davin and bronchial calcifications in the RIGHT lower lobe. Splenic granulomas. Moderate to large esophageal hiatal hernia. CT/CT lung screening 08170 IMPRESSION: LUNG-RADS: 2-Benign Appearance or Behavior FOLLOW UP: 12 Month: Continue annual screening with LDCT
== END 2023-11-12 08:07 | disposition home or self-care (01) ==
PROVIDERS: PCP Family Medicine; Visit Provider Family Medicine
DX: F17.210 Nicotine dependence, cigarettes, uncomplicated (principal); R91.1 Solitary pulmonary nodule; K44.9 Diaphragmatic hernia without obstruction or gangrene
CPT/HCPCS: 71271

== ENCOUNTER 2023-11-14 09:22 | Day surgery (SDC) | payer OTHER, MEDICAID, SELFPAY ==
--- OUTSIDE RECORDS SUMMARY | 2023-11-14 09:23 | XMS_ITS ---
Author Name Unknown Organization [facility] ALLERGIES AND ADVERSE REACTIONS No information ASSESSMENT No information CHIEF COMPLAINT No information Medications Date Medication Startdate Stopdate Stopreason Active Dosequantit y Refills Ndccode Drugcode Pharmacyid Isprescription Srcstatus 12/08 08:22 :01 meloxicam 15 mg tablet null 3 00:00:00 Removed 0 null null [id number] 105 [id number] 05 null False Inactive 01/10 12:57 :41 Acetaminoph en Extra Strength 500 mg tablet null null null 1 null null [id number] 851 039354049 51 null False Active 01/10 12:54 :13 folic acid 1 mg tablet null 3 00:00:00 Other 0 null null [id number] 210 118089910 10 null False Inactive 01/10 12:56 :30 tizanidine 2 mg tablet null 3 00:00:00 Other 0 null null [id number] 289 876826047 89 null False Inactive 01/10 13:22 :51 hydroxyzine HCl 25 mg tablet null null null 1 30 tablet 3 25494929 150 [id number] 50 320 False Active 02/23 14:22 :31 ibuprofen 200 mg capsule null null null 1 null null 99819039 680 325644478 80 null False Active 02/23 14:21 :28 meloxicam 15 mg tablet null 3 00:00:00 Other 0 null null [id number] 105 849986093 05 null False Inactive 09/20 08:27 :02 Enbrel 50 mg/mL (1 mL) subcutaneou s syringe null null null 1 null null [id number] 104 [id number] 04 null False Active 05/08 00:00 :00 fluoxetine 40 mg capsule 05/08/2021 00:00:00 3 00:00:00 Other 0 null null [id number] 856 001907332 56 null False Inactive 05/23 09:24 :02 prednisone 20 mg tablet 05/23/2023 00:00:00 00:00:00 Removed 0 10 tablet 0 87392901 301 [id number] 01 320 False Inactive 05/23 09:23 :34 azithromyci n 250 mg tablet 05/23/2023 00:00:00 00:00:00 Removed 0 6 tablet 0 [id number] 002 514732770 02 320 False Inactive 05/23 09:23 :23 albuterol sulfate 2.5 mg/3 mL (0.083 %) solution for nebulizatio n 05/23/2023 00:00:00 00:00:00 Removed 0 180 ml 0 82072288 160 324426083 60 320 False Inactive 05/23 00:00 :00 azithromyci n 250 mg tablet 05/23/2023 00:00:00 4 00:00:00 Other 0 null null [id number] 002 320325608 02 null False Inactive 05/23 00:00 :00 prednisone 20 mg tablet 05/23/2023 00:00:00 00:00:00 Other 0 null null 82360020 301 [id number] 01 null False Inactive 05/23 00:00 :00 albuterol sulfate 2.5 mg/3 mL (0.083 %) solution for nebulizatio n 05/23/2023 00:00:00 00:00:00 Other 0 null null 42058700 160 721993389 60 null False Inactive 06/04 08:45 :37 Breztri Aerosphere 160 mcg-9mcg-4. 8mcg/actuat ion HFA aerosol inhaler 05/25/2023 00:00:00 00:00:00 Removed 0 5.9 gram 1 31023054 639 439026485 39 320 False Inactive 05/25 14:09 :40 Breztri Aerosphere 160 mcg-9mcg-4. 8mcg/actuat ion HFA aerosol inhaler 05/25/2023 00:00:00 00:00:00 Removed 0 5.9 gram 1 78188463 639 164283672 39 320 True Inactive 05/25 00:00 :00 Breztri Aerosphere 160 mcg-9mcg-4. 8mcg/actuat ion HFA aerosol inhaler 05/25/2023 00:00:00 00:00:00 Other 0 null null 67668003 639 802664888 39 null False Inactive 05/30 07:37 :40 pantoprazol e 40 mg tablet,rafa yed release 05/30/2023 00:00:00 null null 1 30 tablet 11 86335056 390 363716711 90 320 False Active 07/27 00:00 :00 Plaquenil 200 mg tablet 07/27/2021 00:00:00 null null 1 null null 79395680 210 [id number] 10 null False Active 09/26 08:16 :05 Breztri Aerosphere 160 mcg-9mcg-4. 8mcg/actuat ion HFA aerosol inhaler 07/30/2023 00:00:00 null null 1 11 gram 11 74054167 639 540245013 39 320 False Active 08/28 08:27 :59 Breztri Aerosphere 160 mcg-9mcg-4. 8mcg/actuat ion HFA aerosol inhaler 07/30/2023 00:00:00 null null 0 11 gram 0 33227517 639 103913947 39 320 True Inactive 07/29 10:57 :19 Breztri Aerosphere 160 mcg-9mcg-4. 8mcg/actuat ion HFA aerosol inhaler 07/30/2023 00:00:00 null null 0 11 gram 0 23638280 639 699880243 39 320 True Inactive 07/31 08:48 :32 Ventolin HFA 90 mcg/actuati on aerosol inhaler 08/01/2023 00:00:00 null null 1 18 gram 11 [id number] 220 176178143 20 320 False Active 04/29 /2024 14:07 :14 amoxicillin 875 mg tablet 09/03/2023 00:00:00 4 00:00:00 Removed 0 20 tablet 0 35793945 401 345653525 01 320 False Inactive 09/02 14:09 :31 albuterol sulfate 2.5 mg/3 mL (0.083 %) solution for nebulizatio n 09/03/2023 00:00:00 null null 1 180 ml 0 76591654 160 892895242 60 320 False Active 09/02 00:00 :00 amoxicillin 875 mg tablet 09/03/2023 00:00:00 4 00:00:00 Other 0 null null 41877625 401 658346624 01 null False Inactive 11/08 10:21 :47 venlafaxine 75 mg tablet extended release 24hr 11/08/2022 00:00:00 3 00:00:00 Removed 0 30 tablets 11 81880801 983 [id number] 83 320 False Inactive 11/08 00:00 :00 venlafaxine 75 mg tablet extended release 24hr 11/08/2022 00:00:00 3 00:00:00 Other 0 null null 55514853 983 799403008 83 null False Inactive 11/10 00:00 :00 ibuprofen 800 mg tablet 11/10/2020 00:00:00 3 00:00:00 Other 0 null null 71740369 650 802049495 50 null False Inactive 12/08 08:39 :34 trazodone 50 mg tablet 12/08/2022 00:00:00 3 00:00:00 Removed 0 30 tablet 3 27804595 001 351514883 01 320 False Inactive 12/08 08:38 :28 venlafaxine 150 mg tablet extended release 24hr 12/08/2022 00:00:00 3 00:00:00 Removed 0 30 tablets 11 07396829 883 470757364 83 320 False Inactive 12/08 08:48 :15 nicotine 7 mg/24 hr patch 24 hour 12/08/2022 00:00:00 3 00:00:00 Removed 0 30 patches 1 67267841 488 [id number] 88 320 False Inactive 12/08 08:46 :38 nicotine 21 mg/24 hr patch 24 hour 12/08/2022 00:00:00 3 00:00:00 Removed 0 14 patches 0 [id number] 688 862663600 88 320 False Inactive 12/08 08:47 :34 nicotine 14 mg/24 hr patch 24 hour 12/08/2022 00:00:00 3 00:00:00 Removed 0 14 patches 0 86042043 588 353826160 88 320 False Inactive 01/02 12:05 :09 atorvastati n 10 mg tablet 12/08/2022 00:00:00 3 00:00:00 Removed 0 90 tablet 4 36451776 790 [id number] 90 320 False Inactive 12/08 08:53 :15 atorvastati n 10 mg tablet 12/08/2022 00:00:00 3 00:00:00 Removed 0 30 tablet 12 36851863 790 239648513 90 320 True Inactive 12/08 08:58 :21 esomeprazol e magnesium 40 mg capsule,del ayed release(DR/ EC) 12/08/2022 00:00:00 3 00:00:00 Removed 0 30 capsules 5 57803326 198 [id number] 98 320 False Inactive 12/08 10:29 :53 pantoprazol e 40 mg tablet,rafa yed release (DR/EC) 12/08/2022 00:00:00 4 00:00:00 Removed 0 30 tablet 5 69768933 390 214485071 90 320 False Inactive 12/08 00:00 :00 esomeprazol e magnesium 40 mg capsule,del ayed release(DR/ EC) 12/08/2022 00:00:00 3 00:00:00 Other 0 null null 98370605 198 214072178 98 null False Inactive 12/08 00:00 :00 venlafaxine 150 mg tablet extended release 24hr 12/08/2022 00:00:00 3 00:00:00 Other 0 null null [id number] 883 230989367 83 null False Inactive 12/08 00:00 :00 nicotine 21 mg/24 hr patch 24 hour 12/08/2022 00:00:00 3 00:00:00 Other 0 null null 66089748 688 210977744 88 null False Inactive 12/08 00:00 :00 nicotine 14 mg/24 hr patch 24 hour 12/08/2022 00:00:00 3 00:00:00 Other 0 null null [id number] 588 230490470 88 null False Inactive 12/08 00:00 :00 nicotine 7 mg/24 hr patch 24 hour 12/08/2022 00:00:00 3 00:00:00 Other 0 null null 11835212 488 232379583 88 null False Inactive 12/08 00:00 :00 atorvastati n 10 mg tablet 12/08/2022 00:00:00 3 00:00:00 Other 0 null null 42397045 790 916024920 90 null False Inactive 12/08 00:00 :00 trazodone 50 mg tablet 12/08/2022 00:00:00 3 00:00:00 Other 0 null null [id number] 001 908079646 01 null False Inactive 12/08 00:00 :00 pantoprazol e 40 mg tablet,rafa yed release 12/08/2022 00:00:00 4 00:00:00 Other 0 null null [id number] 390 [id number] 90 null False Inactive 01/01 09:40 :42 venlafaxine 75 mg tablet extended release 24hr 01/01/2023 00:00:00 3 00:00:00 Removed 0 30 tablets 11 33052873 983 [id number] 83 320 False Inactive 01/01 00:00 :00 venlafaxine 75 mg tablet extended release 24hr 01/01/2023 00:00:00 3 00:00:00 Other 0 null null [id number] 983 905372976 83 null False Inactive 01/10 13:22 :26 fluoxetine 40 mg capsule 01/10/2023 00:00:00 null null 1 30 capsule 12 [id number] 856 [id number] 56 320 False Active 02/23 14:32 :36 benzonatate 100 mg capsule 02/23/2023 00:00:00 00:00:00 Removed 0 28 capsule 1 32537068 705 215379220 05 320 False Inactive 02/23 14:32 :18 amoxicillin 500 mg capsule 02/23/2023 00:00:00 00:00:00 Removed 0 30 capsule 0 82103939 305 396633074 05 320 False Inactive 02/23 00:00 :00 amoxicillin 500 mg capsule 02/23/2023 00:00:00 00:00:00 Other 0 null null 63795079 305 [id number] 05 null False Inactive 02/23 00:00 :00 benzonatate 100 mg capsule 02/23/2023 00:00:00 3 00:00:00 Other 0 null null 23911258 705 911170900 05 null False Inactive 03/05 13:18 :37 Bactrim DS 800-160 mg tablet 03/05/2023 00:00:00 3 00:00:00 Removed 0 20 tablet 0 [id number] 601 534212440 01 320 False Inactive 03/05 00:00 :00 Bactrim DS 800-160 mg tablet 03/05/2023 00:00:00 3 00:00:00 Other 0 null null 30693554 601 [id number] 01 null False Inactive 03/16 08:53 :49 Abrysvo 120 mcg/0.5 mL recon soln 03/16/2023 00:00:00 null null 1 0.5 ml 0 45457601 405 312307988 05 320 False Active 06/27 09:53 :22 trazodone 50 mg tablet 04/02/2023 00:00:00 null null 1 30 tablet 11 74477047 001 594598741 01 320 False Active 04/02 21:36 :08 trazodone 50 mg tablet 04/02/2023 00:00:00 null null 0 30 tablet 2 51120021 001 071003738 320 True Inactive 04/08 00:00 :00 albuterol sulfate 90 mcg/actuati on HFA aerosol inhaler 04/08/2021 00:00:00 00:00:00 Other 0 null null 87282791 968 168931778 68 null False Inactive OBJECTIVE DATA No information PHYSICAL EXAMINATION No information TREATMENT PLAN No information PROBLEMS No information RESULTS No information REVIEW OF SYSTEMS No information SUBJECTIVE DATA No information VITAL SIGNS No information
--- OUTSIDE RECORDS SUMMARY | 2023-11-14 09:23 | XMS_ITS | Continuity of Care Document ---
Author Name Unknown Organization [facility] Address [id number] [address] Phone Care Team Providers Care Shower Maid Name Role Phone Sam Stewart DDS Unavailable Unavaila ble Allergies, Adverse Reactions, Alerts Substance Reaction Status Criticality No Known Allergies Active No Inform ation Medications Medication Instructions Dosage Effective Dates (start - stop) Status Comments IBUPROFEN (unknown strength) take 1 capsule by oral route every 6 hours as needed Not Available - Active FLUOXETINE HCL (unknown strength) take 2 capsule by oral route every day Not Available - Active HYDROCHLOROTHIAZIDE (unknown strength) take 1 capsule by oral route every day Not Available - Active TRAZODONE HCL (unknown strength) take 1 tablet by oral route 3 times every day after meals Not Available - Active ASTEPRO (unknown strength) spray 1 spray by intranasal route 2 times every day in each nostril Not Available - Active SYMBICORT (unknown strength) inhale 2 puff by inhalation route 2 times every day in the morning and evening Not Available - Active METHOTREXATE (unknown strength) inject 1 milliliter by intramuscular route every week Not Available - Active FOLIC ACID (unknown strength) Not Available - Active OMEPRAZOLE (unknown strength) take 2 capsule by oral route every day before a meal Not Available - Active NIFEDIPINE (unknown strength) take 1 capsule by oral route 3 times every day Not Available - Active RESTASIS (unknown strength) instill 1 drop by ophthalmic route every 12 hours into affected eye(s) Not Available - Active Procedures Procedure Date Periodontal Scaling And Root Planing ??? Four Or Mor Periodontal Scaling And Root Planing ??? One To Thre Periodontal Scaling And Root Planing ??? One To Thre Periodontal Scaling And Root Planing ??? One To Thre Post Op No Charge EDR Approval Note EDR Approval Note Amalgam ??? One Surface, Primary Or Perm anent Resin-Based Composite ??? One Surface, A nterior EDR Approval Note Amalgam ??? One Surface, Primary Or Perm anent Amalgam ??? One Surface, Primary Or Perm anent Amalgam ??? One Surface, Primary Or Perm anent Amalgam ??? One Surface, Primary Or Perm anent EDR Approval Note Extraction, Erupted Tooth Or Exposed Rocío t (Elevati Extraction, Erupted Tooth Or Exposed Rocío t (Elevati EDR Approval Note Full Mouth Debridement To Enable Compreh ensive Libra Bitewings ??? Four Films Panoramic Film Intraoral ??? Periapical First Film Intraoral ??? Periapical Each Additional Film Intraoral ??? Periapical Each Additional Film Intraoral ??? Periapical Each Additional Film Comprehensive Oral Evaluation ??? New Or Established EDR Approval Note Advance Directives Directive Yes / No Effective Date File Name No Information Encounters Encounter Description Practice Location Reason(s) For Visit Diagnoses Date Provider Providers Copied on Encounter [facility], [id number]- [facility], [place], [place], [id number], [place] tel:[phone] [facility] Encounter for dental exam and cleaning w/o abnormal findings 6 Terry Vargas. [address] [place], [address], [place]. tel:[phone] Referring Provider: Sam Wade, [address] [place], [address]. tel:[phone] [facility], [id number]- [place], [id number], [place] tel:[phone] [facility] Encounter for dental exam and cleaning w/o abnormal findings 6 Raul Rubio. [address] [place], [address], [place]. tel:[phone] Referring Provider: Ramiro Moyer, [address] [place], [address]. tel:[phone] [facility], [id number]- [place], [id number], [place] tel:[phone] [facility] Encounter for dental exam and cleaning w/o abnormal findings 6 No Information [facility], [id number]- [place], [id number], [place] tel:[phone] [facility] Encounter for dental exam and cleaning w/o abnormal findings 6 No Information [facility], [id number]- [place], [id number], [place] tel:[phone] [facility] Encounter for dental exam and cleaning w/o abnormal findings 6 No Information [facility], [id number]- [place], [id number], [place] tel:[phone] [facility] Encounter for dental exam and cleaning w/o abnormal findings 6 Bishop Rivera. [address] [place], [address], [place]. tel:[phone] Referring Provider: Nicole Jaimes, [address] [place], [address]. tel:[phone] [facility], [id number] [id number] [place] tel:[phone] [facility] No Information No Information Family History Family Member Type Diagnosis Age At Onset Son Problem (finding) Alive and well Payers Payer name Insurance type Covered democrat ID Authoriza tion(s) No Information Social History Type Description Quantity Date Captured Comments Alcohol Use Details No Caffeine Use Details Unknown Tobacco Use Status Smoking Status No Information Sex Female Chief Complaint And Reason For Visit No Information Reason For Referral Reason For Referral No Information Plan Of Treatment Date Type Action Status Goal Tobacco cessation counseling completed Goal Tobacco cessation counseling completed Goal Tobacco cessation counseling completed History Of Present Illness Encounter Date Complaint History Of Prese nt Illness No Information Functional Status Date Functional Assessmen t No Information Instructions Date Instruction Additional Infor caronion Lifestyle education Related to D ental Examination Lifestyle education Related to D ental Examination Lifestyle education Related to D ental Examination Assessments Type Assessment Date No Information Patient Care Teams Name Effective Dates (start - stop) Status Members No Information
--- OUTSIDE RECORDS SUMMARY | 2023-11-14 09:23 | XMS_ITS ---
Author Name Steven Starks Address [address] [place] [id number] Organization Unknown Address [address] [place] [id number] ALLERGIES AND ADVERSE REACTIONS No information ASSESSMENT No information CHIEF COMPLAINT No information MEDICATIONS No information OBJECTIVE DATA No information PHYSICAL EXAMINATION No information TREATMENT PLAN Planned Care Start Date Provider Encounter for Check-up [id number] [facility] PROBLEMS No information RESULTS No information REVIEW OF SYSTEMS No information SUBJECTIVE DATA No information VITAL SIGNS No information
[2023-11-14 09:42] VITALS: BP 150/87; PULSE 69; RESP 16; TEMP 36.8; O2SAT 97; BMI 42.0
[2023-11-14] MEDS: sodium chloride 0.9% 1,000 ML 30 ML IV (09:57)
--- NOTE | 2023-11-14 10:19 | ANES.PREANE2 ---
Pre-Anesthetic Assessment Height/Weight: Height 1.52 m Weight 97.522 kg Temp Pulse Resp BP Pulse Ox O2 Del Method 98.3 F 69 16 150/87 97 Room Air 11/14/23 09:42 11/14/23 09:42 11/14/23 09:42 11/14/23 09:42 11/14/23 09:42 11/14/23 09:42 Preop Diagnosis: GERD Operation Date: 11/14/23 10:30 Proposed Procedures p EGD 16122, 78463, G0105, K21.9, Z80.0(Not Applicable) - Te Carlisle DO s Colonoscopy(Not Applicable) - Te Carlisle DO Familial anesthetic complications: none Was Beta He taken within 24 hours: N/A Was Clonidine taken within 24 hours: N/A Last intake: Intake Last Liquid Date 11/13/23 Last Liquid Time 20:00 Last Solid Date 11/12/23 Last Solid Time 16:00 Social Alcohol and No alcohol 1 pack(s) per day 45 pack years Exam alert, oriented x 3, clear to auscultation bilaterally and regular rate & rhythm Airway Submandibular: within normal limits Cervical ROM: within normal limits Mallampati: Class I Dentition: full Pulmonary Asthma and Chronic Obstructive Pulmonary Disease CV/HEM Arrythmia and Hypertension None reported Hepatic None reported GI Gastroesophageal Reflux Disease Metabolic None reported Musc/skel Lower Back Pain and Osteoarthritis/DJD Neuropsych Anxiety and Depression Anesthetic Plan ASA status: 3 Anesthesia: MAC Risk of > 500 ml blood loss (7ml/kg in children): No Medications/Allergies Home Medications Medication Instructions Recorded Confirmed Last Taken Type albuterol sulfate 90 mcg/actuation 1 inh inhalation QID PRN Shortness 12/14/20 11/14/23 11/13/23 History aerosol inhaler Of Breath amlodipine 10 mg tablet 10 mg PO DAILY 12/14/20 11/14/23 11/13/23 History hydrochlorothiazide 25 mg tablet 25 mg PO DAILY 12/14/20 11/14/23 11/13/23 History ibuprofen 200 mg capsule 200 mg PO Q6H PRN Pain 12/14/20 11/14/23 11/12/23 History montelukast 10 mg tablet 10 mg PO BEDTIME 12/14/20 11/14/23 11/13/23 History 1/4 inch heel lift, LEFT #1 ea 03/09/23 10/04/23 Unknown Rx Shoe Lift #1 ea 03/14/23 10/04/23 Unknown Rx budesonide 160 mcg-glycopyr 9 2 inh inhalation BID 06/05/23 11/14/23 11/13/23 History mcg-formot 4.8 mcg/actuation HFA inhaler (Breztri Aerosphere) fluoxetine 40 mg capsule 40 mg PO DAILY 06/05/23 11/14/23 11/13/23 History trazodone 50 mg tablet 50 mg PO DAILY 06/05/23 11/14/23 11/13/23 History hydroxychloroquine 200 mg tablet 200 mg PO BID #60 tabs 07/24/23 11/14/23 11/13/23 Rx tramadol 50 mg tablet 50 mg PO BID PRN pain #45 tabs 08/02/23 11/14/23 11/12/23 Rx pantoprazole 40 mg tablet,delayed 40 mg PO BID 6 weeks #84 tabs 10/11/23 11/14/23 11/13/23 Rx release (Protonix) fexofenadine 60 mg tablet (Lizy 60 mg PO DAILY 11/12/23 11/14/23 11/13/23 History Allergy) Allergies Allergy/AdvReac Type Severity Reaction Status Date / Time hydrocodone Allergy ADR-Itching Verified 11/12/23 09:07 Current Medications Generic Name Dose Route Start Last Admin Trade Name Freq PRN Reason Stop Dose Admin Sodium Chloride 1,000 mls @ 30 mls/hr 11/14/23 09:30 11/14/23 09:57 Sodium Chloride 0.9% IV 11/15/23 09:29 30 mls/hr .Q24H ES Administration PFSH Anesthesia Medical History (Updated 10/04/23 @ 09:17 by Te Carlisle DO) Family history of colon cancer Immunization counseling High risk medication use Seronegative rheumatoid arthritis of both hands Greater trochanteric bursitis of both hips Surgical History (Updated 10/04/23 @ 09:18 by Te Carlisle DO) History of hip surgery left Hx of section History of tonsillectomy and adenoidectomy Hx of carpal tunnel repair bilateral Hx of neck surgery Fusion x2 Hx of thumb surgery left Status post total hip replacement, right Surgery in 2013, per pt report. Social History Smoking and tobacco/nicotine status: current every day tobacco/nicotine user cigarettes Packs smoked per day: 1 Alcohol intake: current Alcohol type: wine Substance/Drug Use: never Data Anesthesia Cardiac Studies: Echocardiogram Limited Views 07/31/23
--- NOTE | 2023-11-14 10:50 | PM.HP ---
Providers/Chief Complaint Primary Care Provider: Fan Roa MD Chief Complaint: K21.9 History of Present Illness Leora Davila is a 63 year old female Review of Systems General: Reports: 10 or more systems reviewed and unremarkable except in HPI and below Medications/Allergies Home Medications Medication Instructions Recorded Confirmed Last Taken Type albuterol sulfate 90 mcg/actuation 1 inh inhalation QID PRN Shortness 12/14/20 11/14/23 11/13/23 History aerosol inhaler Of Breath amlodipine 10 mg tablet 10 mg PO DAILY 12/14/20 11/14/23 11/13/23 History hydrochlorothiazide 25 mg tablet 25 mg PO DAILY 12/14/20 11/14/23 11/13/23 History ibuprofen 200 mg capsule 200 mg PO Q6H PRN Pain 12/14/20 11/14/23 11/12/23 History montelukast 10 mg tablet 10 mg PO BEDTIME 12/14/20 11/14/23 11/13/23 History 1/4 inch heel lift, LEFT #1 ea 03/09/23 10/04/23 Unknown Rx Shoe Lift #1 ea 03/14/23 10/04/23 Unknown Rx budesonide 160 mcg-glycopyr 9 2 inh inhalation BID 06/05/23 11/14/23 11/13/23 History mcg-formot 4.8 mcg/actuation HFA inhaler (Breztri Aerosphere) fluoxetine 40 mg capsule 40 mg PO DAILY 06/05/23 11/14/23 11/13/23 History trazodone 50 mg tablet 50 mg PO DAILY 06/05/23 11/14/23 11/13/23 History hydroxychloroquine 200 mg tablet 200 mg PO BID #60 tabs 07/24/23 11/14/23 11/13/23 Rx tramadol 50 mg tablet 50 mg PO BID PRN pain #45 tabs 08/02/23 11/14/23 11/12/23 Rx pantoprazole 40 mg tablet,delayed 40 mg PO BID 6 weeks #84 tabs 10/11/23 11/14/23 11/13/23 Rx release (Protonix) fexofenadine 60 mg tablet (Lizy 60 mg PO DAILY 11/12/23 11/14/23 11/13/23 History Allergy) Allergies Allergy/AdvReac Type Severity Reaction Status Date / Time hydrocodone Allergy ADR-Itching Verified 11/12/23 09:07 PFSH Acute PFSH: Medical History (Updated 10/04/23 @ 09:17 by Te Carlisle DO) Family history of colon cancer Immunization counseling High risk medication use Seronegative rheumatoid arthritis of both hands Greater trochanteric bursitis of both hips Surgical History (Updated 10/04/23 @ 09:18 by Te Carlisle DO) History of hip surgery left Hx of section History of tonsillectomy and adenoidectomy Hx of carpal tunnel repair bilateral Hx of neck surgery Fusion x2 Hx of thumb surgery left Status post total hip replacement, right Surgery in 2014, per pt report. Social History Smoking and tobacco/nicotine status: current every day tobacco/nicotine user cigarettes Packs smoked per day: 1 Alcohol intake: current Alcohol type: wine Substance/Drug Use: never Vitals/I&O/Wt Last Vital Signs Temp 98.3 F 11/14/23 09:42 Pulse 69 11/14/23 09:42 Resp 16 11/14/23 09:42 BP 150/87 11/14/23 09:42 Pulse Ox 97 11/14/23 09:42 O2 Del Method Room Air 11/14/23 09:42 Weight last 48 hrs Weight 215 lb A&P Assessment and plan (1) GERD (gastroesophageal reflux disease): (2) Family history of colon cancer: Plan EGD and screening colonoscopy Attestations Medical Necessity Statement*: Home Coding Level of Care Code Acute Code for Chg Fwd Diagnoses GERD (gastroesophageal reflux disease) K21.9 Family history of colon cancer Z80.0
[2023-11-14 11:14] VITALS: BP 127/69; PULSE 69; RESP 12; TEMP 36.4; O2SAT 95
[2023-11-14 11:24] VITALS: BP 116/84; PULSE 68; RESP 14; O2SAT 97
[2023-11-14 11:31] VITALS: BP 134/83; PULSE 63; RESP 16; O2SAT 98
--- NOTE | 2023-11-14 11:45 | ANE.PACU2 ---
Inpatient post-anesthesia follow up: Airway intact: Yes Vital signs: Temperature 97.6 F Pulse Rate 63 Respiratory Rate 16 Blood Pressure 134/83 Pulse Oximetry 98 Oxygen Delivery Me thod Room Air Oxygen Flow Rate 3 Fraction of Inspir ed Oxygen Hydration adequate: Yes Nausea and vomiting: No Pain level: 1 Mental status: Baseline
== END 2023-11-14 11:45 | disposition home or self-care (01) ==
PROVIDERS: PCP Family Medicine; Visit Provider Surgery
PROC: 0DJ08ZZ Inspection of Upper Intestinal Tract, Via Natural or Artificial Opening Endoscopic (ICD-10-PCS; CPT 43235; principal; 2023-11-14 10:30)
PROC: 0DJD8ZZ Inspection of Lower Intestinal Tract, Via Natural or Artificial Opening Endoscopic (ICD-10-PCS; CPT 45378; 2023-11-14 10:30)
DX: Z12.11 Encounter for screening for malignant neoplasm of colon (principal); Z80.0 Family history of malignant neoplasm of digestive organs; K21.9 Gastro-esophageal reflux disease without esophagitis; K57.30 Diverticulosis of large intestine without perforation or abscess without bleeding; K64.8 Other hemorrhoids; D12.2 Benign neoplasm of ascending colon; K29.90 Gastroduodenitis, unspecified, without bleeding; D12.5 Benign neoplasm of sigmoid colon; K44.9 Diaphragmatic hernia without obstruction or gangrene; K29.71 Gastritis, unspecified, with bleeding; J44.9 Chronic obstructive pulmonary disease, unspecified; F17.210 Nicotine dependence, cigarettes, uncomplicated
CPT/HCPCS: 43239; 45385; 88305; J2704; J7030

== ENCOUNTER → 2023-11-19 09:24 | Outpatient (BNVA) | payer OTHER, MEDICAID, SELFPAY | PROVIDERS: PCP Family Medicine; Visit Provider Specialist | DX: M70.61 Trochanteric bursitis, right hip; M70.62 Trochanteric bursitis, left hip; Z96.642 Presence of left artificial hip joint; Z96.641 Presence of right artificial hip joint | CPT/HCPCS: 73523; 99214 ==

== ENCOUNTER 2023-11-26 09:47 | Outpatient (CLI) | payer OTHER, MEDICAID, SELFPAY | END 2023-11-26 09:48 | disposition home or self-care (01) | LOC: LAB 09:49 | PROVIDERS: PCP Family Medicine; Visit Provider Nurse Practitioner Family | DX: L30.9 Dermatitis, unspecified (principal); K11.7 Disturbances of salivary secretion; L57.8 Other skin changes due to chronic exposure to nonionizing radiation; D18.01 Hemangioma of skin and subcutaneous tissue; L81.4 Other melanin hyperpigmentation; Z71.89 Other specified counseling; L85.3 Xerosis cutis; L57.0 Actinic keratosis; L57.3 Poikiloderma of Civatte | CPT/HCPCS: 36415; 84182; 86235; 99214 ==

== ENCOUNTER 2023-12-17 08:07 | Outpatient (CLI) | payer OTHER, MEDICAID, SELFPAY ==
[2023-12-17 08:41] LABS: Erythrocyte Sedimentation Rate 22 mm/hr (0-15)
[2023-12-17 08:44] LABS: C Reactive Protein 7.7 mg/L (0.0-4.9); Creatine Phosphokinase 131 U/L (26-192)
[2023-12-19 13:09] LABS: Aldolase 5.3 U/L (< OR = 8.1)
== END 2023-12-17 08:08 | disposition home or self-care (01) ==
LOC: LAB 08:09
PROVIDERS: PCP Family Medicine; Visit Provider Internal Medicine Rheumatology
DX: M06.041 Rheumatoid arthritis without rheumatoid factor, right hand (principal); M06.042 Rheumatoid arthritis without rheumatoid factor, left hand; Z79.899 Other long term (current) drug therapy
CPT/HCPCS: 36415; 82085; 82550; 85651; 86140

== ENCOUNTER → 2023-12-24 08:56 | Outpatient (BNVA) | payer OTHER, MEDICAID, SELFPAY | PROVIDERS: PCP Family Medicine; Visit Provider Internal Medicine Rheumatology | DX: M51.37 Other intervertebral disc degeneration, lumbosacral region (principal); M06.041 Rheumatoid arthritis without rheumatoid factor, right hand; M06.042 Rheumatoid arthritis without rheumatoid factor, left hand; Z79.899 Other long term (current) drug therapy; Z71.85 Encounter for immunization safety counseling; M33.10 Other dermatomyositis, organ involvement unspecified | CPT/HCPCS: 99214 ==

== ENCOUNTER 2024-01-29 09:01 | Outpatient (CLI) | payer OTHER, MEDICAID, SELFPAY ==
[2024-01-29 09:34] LABS: Basophils % 0.5 %; Eosinophils # 0.2 10^3/uL (0.0-0.8); Eosinophils % 3.6 %; Hematocrit 43.6 % (36-47); Lymphocytes # 1.7 10^3/uL (0.8-4.8); Lymphocytes % 26.1 %; Mean Corpuscular HGB Conc 32.1 g/dL (30-55); Mean Corpuscular Hemoglobin 31.8 pg (27-33); Mean Corpuscular Volume 99.1 fl (85-98); Mean Platelet Volume 9.8 fL (7.4-10.4); Monocytes # 0.6 10^3/uL (0.2-0.9); Monocytes % 9.5 %; Neutrophils # 3.84 10^3/uL (1.8-7.7); Nucleated Red Blood Cells % 0 %; Platelet Count 336 10^3/cmm (157-399); Red Cell Distribution Width 14.8 % (12.1-15.1)
[2024-01-29 09:38] LABS: Erythrocyte Sedimentation Rate 18 mm/hr (0-15)
[2024-01-29 09:59] LABS: Alanine Aminotransferase 18 U/L (0-33); Albumin Level 4.4 g/dL (3.5-5.2); Alkaline Phosphatase 75 U/L (35-105); Aspartate Amino Transferase 17 U/L (0-32); C Reactive Protein 5.1 mg/L (0.0-4.9); Globulin 3.2 g/dL (1.3-4.6); Glomerular Filtration Rate 84.5 mL/min (90-130); Total Bilirubin 0.3 mg/dL (0.15-1.2); Total Protein 7.6 g/dL (6.6-8.7)
== END 2024-01-29 09:02 | disposition home or self-care (01) ==
LOC: LAB 09:03
PROVIDERS: PCP Family Medicine; Visit Provider Internal Medicine Rheumatology
DX: Z79.899 Other long term (current) drug therapy (principal); M06.041 Rheumatoid arthritis without rheumatoid factor, right hand; M06.042 Rheumatoid arthritis without rheumatoid factor, left hand
CPT/HCPCS: 36415; 80076; 82565; 85025; 85651; 86140

== ENCOUNTER → 2024-04-21 09:14 | Outpatient (BNVA) | payer OTHER, MEDICAID, SELFPAY | PROVIDERS: PCP Family Medicine; Visit Provider Internal Medicine Rheumatology | DX: Z79.899 Other long term (current) drug therapy (principal); M33.10 Other dermatomyositis, organ involvement unspecified; M06.041 Rheumatoid arthritis without rheumatoid factor, right hand; M06.042 Rheumatoid arthritis without rheumatoid factor, left hand; Z71.85 Encounter for immunization safety counseling; M70.61 Trochanteric bursitis, right hip; M70.62 Trochanteric bursitis, left hip | CPT/HCPCS: 36415; 80076; 82085; 82550; 82565; 85025; 85651; 86140; 99214 ==

== ENCOUNTER → 2024-07-22 14:20 | Outpatient (BNVA) | payer OTHER, MEDICAID, SELFPAY | PROVIDERS: PCP Family Medicine; Visit Provider Dermatology | DX: M33.13 Other dermatomyositis without myopathy (principal); M71.341 Other bursal cyst, right hand; L57.0 Actinic keratosis | CPT/HCPCS: 10060; 11900; 17000; 99213 ==

== ENCOUNTER → 2024-08-04 12:41 | Outpatient (BNVA) | payer OTHER, MEDICAID, SELFPAY | PROVIDERS: PCP Family Medicine; Visit Provider Internal Medicine Rheumatology | DX: M06.041 Rheumatoid arthritis without rheumatoid factor, right hand (principal); M06.042 Rheumatoid arthritis without rheumatoid factor, left hand; Z79.899 Other long term (current) drug therapy; Z71.85 Encounter for immunization safety counseling; M33.10 Other dermatomyositis, organ involvement unspecified | CPT/HCPCS: 99214 ==

== ENCOUNTER 2024-09-04 14:24 | Outpatient (CLI) | payer OTHER, MEDICAID, SELFPAY ==
[2024-09-04 14:43] LABS: Basophils % 0.4 %; Eosinophils # 0.4 10^3/uL (0.0-0.8); Eosinophils % 5.2 %; Hematocrit 41.5 % (36-47); Lymphocytes # 2.5 10^3/uL (0.8-4.8); Lymphocytes % 34.7 %; Mean Corpuscular HGB Conc 32.5 g/dL (30-55); Mean Corpuscular Hemoglobin 31.8 pg (27-33); Mean Corpuscular Volume 97.9 fl (85-98); Mean Platelet Volume 9.5 fL (7.4-10.4); Monocytes # 0.6 10^3/uL (0.2-0.9); Monocytes % 8.4 %; Nucleated Red Blood Cells % 0 %; Platelet Count 345 10^3/cmm (157-399); Red Blood Count 4.24 10^6/uL (3.85-5.65); White Blood Count 7.06 10^3/uL (3.29-11.43)
[2024-09-04 14:45] LABS: Erythrocyte Sedimentation Rate 21 mm/hr (0-15)
[2024-09-04 15:01] LABS: Alanine Aminotransferase 16 U/L (0-33); Albumin Level 4.3 g/dL (3.5-5.2); Alkaline Phosphatase 74 U/L (35-105); Aspartate Amino Transferase 16 U/L (0-32); C Reactive Protein 3.2 mg/L (0.0-4.9); Globulin 3.3 g/dL (1.3-4.6); Glomerular Filtration Rate 100.6 mL/min (90-130); Total Bilirubin 0.2 mg/dL (0.15-1.2); Total Protein 7.6 g/dL (6.6-8.7)
== END 2024-09-04 14:25 | disposition home or self-care (01) ==
LOC: LAB 14:26
PROVIDERS: PCP Family Medicine; Visit Provider Internal Medicine Rheumatology
DX: Z79.899 Other long term (current) drug therapy (principal)
CPT/HCPCS: 36415; 80076; 82565; 85025; 85651; 86140

== ENCOUNTER 2024-11-03 08:29 | Outpatient (CLI) | payer OTHER, MEDICAID, SELFPAY ==
--- NOTE | 2024-11-03 08:38 | MM_ITS ---
WS: [id number] BILATERAL 3D TOMOSYNTHESIS DIGITAL SCREENING MAMMOGRAPHY WITH CAD CLINICAL INFORMATION: SCREENING HISTORY: Screening mammogram. No current complaints. COMPARISON: 2023 TECHNIQUE: Bilateral CC and MLO views. FINDINGS: Scattered fibroglandular densities bilaterally. No suspicious focal mass, asymmetry, calcifications, or architectural distortion. No evidence of malignancy. A few incidental punctate calcifications. MM/MM scr tomosynthesis [id number] IMPRESSION: DENSITY: There are scattered areas of fibroglandular density. BI-RADS: 2 - Benign. FOLLOW UP: 1 Year Follow-up Recommend return to annual screening mammography.
== END 2024-11-03 08:30 | disposition home or self-care (01) ==
LOC: RAD 08:29
PROVIDERS: PCP Family Medicine; Visit Provider Family Medicine
DX: Z12.31 Encounter for screening mammogram for malignant neoplasm of breast (principal); R92.323 Mammographic fibroglandular density, bilateral breasts; R92.1 Mammographic calcification found on diagnostic imaging of breast
CPT/HCPCS: 77063; 77067

== ENCOUNTER 2024-11-17 09:38 | Outpatient (CLI) | payer OTHER, MEDICAID, SELFPAY ==
--- NOTE | 2024-11-17 09:48 | CT_ITS ---
WS: [id number] LDCT LUNG CANCER SCREENING TECHNIQUE: Noncontrast CT of the chest with coronal and sagittal reformatted images. CLINICAL INFORMATION: HX OF TOBACCO USE COMPARISON: 2023 DLP: 61.61 mGy.cm DIvol: Mean CTDIvol: 1.40 (mGy) All CT scans at [facility] use at least one of these dose optimization techniques: automated exposure control; mA and/or kV adjustment per patient size (includes targeted exams where dose is matched to clinical indication); or iterative reconstruction. FINDINGS: Previously described 7 mm pleural nodule RIGHT upper lobe posteriorly is stable. Tiny noncalcified nodules RIGHT upper lobe. Tiny noncalcified nodule LEFT lung apex and LEFT upper lobe anteriorly. No new suspicious pulmonary parenchymal abnormalities. Normal caliber thoracic aorta. Coronary calcification. Calcified subcarinal lymph nodes. Calcified granulomas and bronchial calcifications in the RIGHT lower lobe. Splenic granulomas. Moderate to large esophageal hiatal hernia. Moderate thoracic kyphosis with spondylitic changes. Postoperative changes in the cervical spine. CT/CT lung screening [id number] IMPRESSION: LUNG-RADS: 2-Benign Appearance or Behavior FOLLOW UP: 12 Month: Continue annual screening with LDCT
== END 2024-11-17 09:39 | disposition home or self-care (01) ==
PROVIDERS: PCP Family Medicine; Visit Provider Family Medicine
DX: Z12.2 Encounter for screening for malignant neoplasm of respiratory organs (principal); R91.8 Other nonspecific abnormal finding of lung field; Z87.891 Personal history of nicotine dependence
CPT/HCPCS: 71271

== ENCOUNTER → 2024-11-19 13:16 | Outpatient (BNVA) | payer OTHER, MEDICAID, SELFPAY | PROVIDERS: PCP Family Medicine; Visit Provider Internal Medicine Rheumatology | DX: M51.379 Other intervertebral disc degeneration, lumbosacral region without mention of lumbar back pain or lower extremity pain (principal); M06.041 Rheumatoid arthritis without rheumatoid factor, right hand; M06.042 Rheumatoid arthritis without rheumatoid factor, left hand; Z79.899 Other long term (current) drug therapy; Z71.85 Encounter for immunization safety counseling; M33.10 Other dermatomyositis, organ involvement unspecified | CPT/HCPCS: 99214 ==

== ENCOUNTER → 2024-12-29 14:40 | Outpatient (BNVA) | payer OTHER, MEDICAID, SELFPAY | PROVIDERS: PCP Family Medicine; Visit Provider Anesthesiology Pain Medicine | DX: M54.50 Low back pain, unspecified (principal); M79.605 Pain in left leg; M54.2 Cervicalgia; G89.28 Other chronic postprocedural pain; Z98.890 Other specified postprocedural states; M54.12 Radiculopathy, cervical region; Z98.1 Arthrodesis status; M47.812 Spondylosis without myelopathy or radiculopathy, cervical region; M53.3 Sacrococcygeal disorders, not elsewhere classified; M51.379 Other intervertebral disc degeneration, lumbosacral region without mention of lumbar back pain or lower extremity pain | CPT/HCPCS: 99214 ==

== ENCOUNTER 2025-01-09 08:33 | Outpatient (CLI) | payer OTHER, MEDICAID, SELFPAY ==
--- NOTE | 2025-01-09 08:45 | MR_ITS ---
WS: [id number] MRI LUMBAR SPINE NONCONTRAST TECHNIQUE: Sagittal T1, T2 and STIR imaging. Axial T1 and T2 imaging. CLINICAL INFORMATION: M54.16 - Radiculopathy, lumbar region COMPARISON: 2021 FINDINGS: Mild lumbar curve. No acute compression. Grade 1 anterolisthesis L5 on S1. Disc bulging worse at L3-L4 L4-L5 and L5-S1. Disc desiccation worse at L4-L5 and L5- S1 with endplate degenerative changes. Shallow central protrusion T11-T12 with mild bilateral foraminal narrowing. Shallow central protrusion at T12-L1. Prior cervical fusion seen on cutter tender imaging L1-L2: Mild annular bulging. Slight narrowing LEFT subarticular recess. Mild facet arthropathy. Mild LEFT foraminal narrowing. L2-L3: Mild annular bulging with moderate central canal stenosis. Impingement on the traversing RIGHT greater than LEFT L3 nerve roots in the subarticular recess. Moderate facet arthropathy. LEFT foraminal protrusion impinges the exiting L2 nerve root with moderate LEFT foraminal narrowing. Mild RIGHT foraminal narrowing. L3-L4: Mild to moderate central canal stenosis with impingement on the RIGHT greater than LEFT subarticular recess. Bilateral foraminal protrusions LEFT greater than RIGHT with moderate LEFT and mild RIGHT foraminal narrowing. Mild facet arthropathy. L4-L5: Slight anterolisthesis. Broad-based central protrusion with mild to moderate central canal stenosis and impingement of traversing L5 nerve roots. Moderate facet arthropathy. Moderate RIGHT and mild LEFT foraminal narrowing. L5-S1: Grade 1 anterolisthesis. Mild disc bulging with a central protrusion and mild central canal stenosis.. Impingement on the traversing of the LEFT S1 nerve roots. Moderate facet arthropathy. Moderate RIGHT and mild LEFT foraminal narrowing. Visualized pelvic bony structures: Normal. Paravertebral soft tissues: Normal. RIGHT ovarian cyst partially visualized measuring 2.8 x 2.7 cm. MR/MR lumbar spine wo con* [id number] IMPRESSION: 1. Mild lumbar curve. No acute compression. 2. Grade 1 anterolisthesis L4 on L5 and L5 on S1 worse at L5-S1. 3. Progressed moderate central canal stenosis L2-3 with impingement on the RIG HT subarticular recess. 4. Progressed mild to moderate central canal stenosis L3-L4 and L4-L5 with imp ingement on the RIGHT L3-4 and bilateral L4-5 subarticular recess. 5. Slightly progressed central protrusion L5-S1 impinges the traversing S1 ner ve roots with mild central canal stenosis. 6. Prominent LEFT L2-3 foraminal protrusion impinges the exiting LEFT L2 nerve root. 7. Moderate RIGHT L4-5 and moderate RIGHT L5-S1 foraminal narrowing.
== END 2025-01-09 08:34 | disposition home or self-care (01) ==
LOC: RAD 08:35
PROVIDERS: PCP Family Medicine; Visit Provider Anesthesiology Pain Medicine
DX: M54.16 Radiculopathy, lumbar region (principal); M43.8X6 Other specified deforming dorsopathies, lumbar region; M43.16 Spondylolisthesis, lumbar region; M43.17 Spondylolisthesis, lumbosacral region; M48.061 Spinal stenosis, lumbar region without neurogenic claudication; R93.7 Abnormal findings on diagnostic imaging of other parts of musculoskeletal system; M51.27 Other intervertebral disc displacement, lumbosacral region; M48.07 Spinal stenosis, lumbosacral region; M51.26 Other intervertebral disc displacement, lumbar region; M51.369 Other intervertebral disc degeneration, lumbar region without mention of lumbar back pain or lower extremity pain; M51.379 Other intervertebral disc degeneration, lumbosacral region without mention of lumbar back pain or lower extremity pain; M43.22 Fusion of spine, cervical region; M47.896 Other spondylosis, lumbar region; M47.897 Other spondylosis, lumbosacral region; N83.201 Unspecified ovarian cyst, right side
CPT/HCPCS: 72148

== ENCOUNTER → 2025-01-19 09:21 | Outpatient (BNVA) | payer OTHER, MEDICAID, SELFPAY | PROVIDERS: PCP Family Medicine; Visit Provider Dermatology | DX: M33.13 Other dermatomyositis without myopathy (principal) | CPT/HCPCS: 99214 ==

== ENCOUNTER → 2025-01-26 13:41 | Outpatient (BNVA) | payer OTHER, MEDICAID, SELFPAY | PROVIDERS: PCP Family Medicine; Visit Provider Anesthesiology Pain Medicine | DX: M54.12 Radiculopathy, cervical region (principal); M47.812 Spondylosis without myelopathy or radiculopathy, cervical region; M53.3 Sacrococcygeal disorders, not elsewhere classified; M51.379 Other intervertebral disc degeneration, lumbosacral region without mention of lumbar back pain or lower extremity pain; G89.28 Other chronic postprocedural pain; M79.605 Pain in left leg; Z98.1 Arthrodesis status | CPT/HCPCS: 99214 ==

== ENCOUNTER 2025-01-28 07:04 | Outpatient (CLI) | payer OTHER, MEDICAID, SELFPAY ==
[2025-01-28 07:30] VITALS: PULSE 74; RESP 18; O2SAT 97
== END 2025-01-28 07:05 | disposition home or self-care (01) ==
LOC: RT 07:07
PROVIDERS: PCP Family Medicine; Visit Provider Dermatology
DX: M33.13 Other dermatomyositis without myopathy (principal)
CPT/HCPCS: 94060; 94726; 94729; J7613

== ENCOUNTER → 2025-02-10 12:51 | Outpatient (BNVA) | payer OTHER, MEDICAID, SELFPAY | PROVIDERS: PCP Family Medicine; Visit Provider Anesthesiology Pain Medicine | DX: M54.16 Radiculopathy, lumbar region (principal) | CPT/HCPCS: 64483; 64484; J1100; J3490; J9999 ==

== ENCOUNTER 2025-02-11 09:29 | Outpatient (CLI) | payer OTHER, MEDICAID, SELFPAY ==
--- NOTE | 2025-02-11 09:38 | CTR_ITS ---
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 Radiation optimization: All CT scans at this facility use at least one of these dose optimization techniques: automated exposure control; mA and/or kV adjustment per patient size (includes targeted exams where dose is matched to clinical indication); or iterative reconstruction. Contrast material: OMNI 350; Contrast volume: 100 ml; Contrast route: INTRAVENOUS (IV); COMPARISON: 1. CR XR hip BI m 5V wo/w pel* [id number] 11/19/2023 9:[address] lung screening [id number] 11/17/2024 10:16 AM RADIATION DOSE METRICS: Total DLP (mGy-cm): 1145.85 FINDINGS: Lungs: Unchanged. 4.2 cm lobulated calcification superiorly in the right lower lobe, incompletely imaged. An additional 8 mm right lower lobe calcification is noted. Coronary arteries: Coronary artery calcifications are present. Esophagus: 5.4 cm hiatal hernia with paraesophageal component. Liver: Hepatomegaly. No liver mass. Gallbladder and biliary ducts: The gallbladder is normal. There is no evidence of biliary ductal dilation. Pancreas: The pancreas is normal. No mass. Spleen: Numerous calcified granulomas in the spleen. Adrenal glands: The adrenal glands are normal. Kidneys and ureters: Subcentimeter cysts in the left kidney. Solid renal mass is not identified. No hydronephrosis. Stomach and bowel: Bowel caliber is normal. No paracolonic inflammatory changes. Appendix: Normal appendix. Intraperitoneal space: No free intraperitoneal fluid or gas. Vasculature: Aortic caliber is normal. Lymph nodes: No lymph node enlargement. Urinary bladder: The bladder is obscured by streak artifact from hip replacements. Reproductive: 3.1 cm right ovarian cyst. Slight rightward deviation of the proximal uterus, which is partially obscured by hip replacement streak artifact. Bones/joints: Diffuse, severe degenerative disc disease in the lower lumbar spine and lower thoracic spine. Bilateral hip replacements. No suspicious osseous lesion. Soft tissues: Partial fatty replacement of the gluteus muscles. CT/CT abdomen pelvis wo/w [id number] IMPRESSION: 1. No acute intra-abdominal abnormalities. 2. Hiatal hernia. 3. Evidence of previous granulomatous disease. 4. 3.1 cm right ovarian cyst. No follow-up is necessary. 5. Slight rightward deviation of the proximal uterus, which is partially obscured by hip replacement streak artifact. Uterine mass such as leiomyoma could be present, which would be best evaluated with pelvic sonography. COMMENTS: Consistent with the [employer]'s Incidental Findings Committee white paper (J Am Momo Radiol 2018): Any incidental renal lesion less than 1 cm or classified as too small to characterize, or any incidental cystic renal lesion characterized as simple-appearing, is likely benign. No follow-up imaging is recommended for these lesions per consensus recommendations based on imaging criteria.
[2025-02-11 10:22] LABS: Blood Urea Nitrogen 13 mg/dL (8-23)
== END 2025-02-11 09:30 | disposition home or self-care (01) ==
PROVIDERS: PCP Family Medicine; Visit Provider Dermatology
DX: M33.13 Other dermatomyositis without myopathy (principal); Z01.89 Encounter for other specified special examinations; J98.4 Other disorders of lung; I25.10 Atherosclerotic heart disease of native coronary artery without angina pectoris; K44.9 Diaphragmatic hernia without obstruction or gangrene; L92.8 Other granulomatous disorders of the skin and subcutaneous tissue; N28.1 Cyst of kidney, acquired; N83.201 Unspecified ovarian cyst, right side; M51.369 Other intervertebral disc degeneration, lumbar region without mention of lumbar back pain or lower extremity pain; M51.34 Other intervertebral disc degeneration, thoracic region
CPT/HCPCS: 74178; 82565; 84520

== ENCOUNTER 2025-02-16 15:01 | Outpatient (CLI) | payer OTHER, MEDICAID, SELFPAY ==
--- NOTE | 2025-02-16 15:08 | USR_ITS ---
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 Complete exam. Real time ultrasound with image documentation. COMPARISON: CT abdomen pelvis wo/w [id number] 02/11/2025 10:15 AM FINDINGS: Uterus: Uterus measures 5.8 x 2.7 x 3.8 cm. Myometrium is heterogeneous. Solid 1.7 x 2.0 x 1.6 cm mass is present along the anterior aspect of the fundus of the uterus. Findings more compatible with a subserosal uterine leiomyoma. Additional larger 3.2 x 2.6 x 2.8 cm heterogeneous mass is present along the lower uterine segment. There is a small amount of internal vascularity. This appears to abut the margin of the cervix. Statistically, this more likely corresponds to a uterine leiomyoma. Endometrium appears homogeneous. Endometrial thickness was measured at 9 mm which is abnormally thickened for a postmenopausal female. Please correlate with any history of postmenopausal bleeding. section scar is present along the lower uterine segment. Right ovary/adnexa: Well-circumscribed 2.7 x 3.0 x 2.5 cm unilocular cyst is present posterior to the uterus and extending along the right adnexa. The right ovary is not seen separate from this unilocular simple appearing cyst. This appears benign. Left ovary/adnexa: Multiple small cysts or follicles are present within the left ovary. Left ovary measures up to 2.7 x 1.5 x 1.6 cm. Color-flow is documented along the periphery. Largest dominant follicle or cyst measures up to 12 mm. Arterial and venous waveforms appear within normal limits. Intraperitoneal space: No free fluid within the pelvis. Urinary bladder: Visualized portion of the bladder appears grossly unremarkable. Bladder is partially decompressed. Mild circumferential bladder wall thickening which more likely is secondary to partial decompression of the bladder. US/US pelv w/transvag [id number] IMPRESSION: 1. 1.7 x 2.0 x 1.6 cm circumscribed mass along the anterior aspect of the fundus of the uterus is more compatible with a subserosal uterine leiomyoma. Additional 3.2 x 2.6 x 2.8 cm heterogeneous mass along the lower uterine segment also more likely corresponds to uterine leiomyoma. Please correlate with any history of uterine bleeding. Follow-up pelvic MRI could be considered to better evaluate the lesion along the lower uterine segment. This abuts or nearly abuts the cervix. 2. 2.7 x 3.0 x 2.5 cm unilocular simple appearing cyst posterior to the uterus and extending into the right adnexa. The right ovary is not seen separate from this simple appearing cyst. This appears benign. 3. Septated cystic structure is present within the left ovary. No wall nodularity or internal vascularity. This most likely corresponds to a septated cyst or small cluster of cysts or follicles. Cystic ovarian neoplasm is not fully excluded but unlikely. The left ovary otherwise appears unremarkable. 4. No free fluid within the pelvis. 5. Endometrial thickness was measured at 9 mm. This would be abnormal for a postmenopausal female. This appears to include the junctional zone. Central endometrial thickness measures 3 mm. Please correlate with any history of vaginal bleeding. Surveillance imaging with follow-up pelvic ultrasound should be considered.
== END 2025-02-16 15:02 | disposition home or self-care (01) ==
LOC: RAD 15:01
PROVIDERS: PCP Family Medicine; Visit Provider Dermatology
DX: D25.2 Subserosal leiomyoma of uterus (principal); N83.291 Other ovarian cyst, right side; R93.89 Abnormal findings on diagnostic imaging of other specified body structures
CPT/HCPCS: 76830; 76856

== ENCOUNTER → 2025-02-23 14:58 | Outpatient (BNVA) | payer OTHER, MEDICAID, SELFPAY | PROVIDERS: PCP Family Medicine; Visit Provider Anesthesiology Pain Medicine | DX: M17.11 Unilateral primary osteoarthritis, right knee (principal); M17.12 Unilateral primary osteoarthritis, left knee | CPT/HCPCS: 73562 ==

== ENCOUNTER 2025-03-13 06:59 | Outpatient (CLI) | payer OTHER, MEDICAID, SELFPAY ==
--- NOTE | 2025-03-13 07:06 | MR_ITS ---
WS: [id number] MRI PELVIS WITH AND WITHOUT CONTRAST. COMPARISON: Pelvic ultrasound 02/16/2025, 02/19/2012. Multiplanar, multisequence imaging is performed with and without contrast. Sagittal and axial T1 fat sat sequences post-MultiHance 20 cc IV. Normal size anteverted uterus. Several T1 and T2 hypointense masses within the uterus consistent with leiomyomas. The largest hypoechoic mass is intramural along the RIGHT lower uterine segment measuring 4.1 x 3.4 x 3.2 cm. Masses bulging and causing distortion of the uterus. There is also mass effect upon the lower uterine segment and the endometrium. Additional intramural uterine fibroid along the anterior superior myometrium measures 1.0 x 1.8 x 1.7 cm. The endometrium is thin measuring up to 2 mm. No signal abnormality along the endometrium. RIGHT ovary contains a single dominant follicle versus 2 small follicles by a septation. The entire complex measures 2.9 x 2.4 x 2.8 cm. No enhancing soft tissue component. LEFT ovary measures 1.7 x 2.2 x 2.0 cm and contains a very small follicle. There is no free fluid in the pelvis. No adenopathy identified. There is artifact from patient's bilateral hip prostheses obscuring some detail of the pelvis. Urinary bladder appears negative. On the postcontrast imaging there is significant deformity secondary to the patient's hip prosthesis. Postcontrast imaging is very limited. Note is made of sigmoid diverticular disease. No evidence for acute diverticulitis or fluid collection. MR/MR pelvis wo/w con [id number] IMPRESSION: 1. Fibroid uterus. There are 2 leiomyomas identified. The largest along the RI GHT lower uterine segment measures 4.1 x 3.4 x 3.2 cm. This mass does bulge fro m the uterine contour and also displaces the lower endometrial segment. 2. Second fibroid measures 1.0 x 1.8 x 1.7 cm along the anterior superior myom etrium. 3. Mildly dominant follicle RIGHT ovary measures 2.9 x 2.4 x 2.8 cm. 4. No free fluid in the pelvis. 5. Postcontrast imaging is limited as there is significant artifact from the p atient's bilateral hip prostheses. 6. Normal endometrium.
== END 2025-03-13 07:00 | disposition home or self-care (01) ==
LOC: RAD 07:00
PROVIDERS: PCP Family Medicine; Visit Provider Dermatology
DX: D25.9 Leiomyoma of uterus, unspecified (principal); N83.201 Unspecified ovarian cyst, right side; Z96.643 Presence of artificial hip joint, bilateral
CPT/HCPCS: 72197

== ENCOUNTER → 2025-03-23 12:41 | Outpatient (BNVA) | payer OTHER, MEDICAID, SELFPAY | PROVIDERS: PCP Family Medicine; Visit Provider Anesthesiology Pain Medicine | DX: M17.0 Bilateral primary osteoarthritis of knee (principal); M47.812 Spondylosis without myelopathy or radiculopathy, cervical region; M51.379 Other intervertebral disc degeneration, lumbosacral region without mention of lumbar back pain or lower extremity pain; M54.12 Radiculopathy, cervical region; G89.28 Other chronic postprocedural pain | CPT/HCPCS: 99214 ==

== ENCOUNTER → 2025-04-13 13:01 | Outpatient (BNVA) | payer OTHER, MEDICAID, SELFPAY | PROVIDERS: PCP Family Medicine; Visit Provider Internal Medicine Rheumatology | DX: M51.379 Other intervertebral disc degeneration, lumbosacral region without mention of lumbar back pain or lower extremity pain (principal); M06.041 Rheumatoid arthritis without rheumatoid factor, right hand; M06.042 Rheumatoid arthritis without rheumatoid factor, left hand; Z71.85 Encounter for immunization safety counseling; Z79.899 Other long term (current) drug therapy; M33.10 Other dermatomyositis, organ involvement unspecified | CPT/HCPCS: 36415; 80076; 82565; 82657; 85025; 85651; 86140; 86480; 99214 ==